=== PATIENT | female | born 1935 | race Caucasian/White ===

== ENCOUNTER 2018-09-12 19:11 | Inpatient (IN) ==
--- NOTE | 2018-09-12 19:43 | Diag Imaging Result Doc PS360 ---
EXAM: CT HEAD/C-SPINE W/O CONTRAST 09/12/2018 HISTORY: fall TECHNIQUE: This exam was performed using automated exposure control, adjustment of mA or kV according to patient size, and/or use of iterative reconstruction technique. COMMENT: There is no evidence of mass effect, bleed, abnormal extra-axial fluid collection, or hydrocephalus. There is a lacune in the right anterior temporal lobe. This has not changed since 12/23/2016. The paranasal sinuses are clear. There is no evidence of acute bony disease. Cervical spine: There is disc space narrowing and posterior osteophyte formation at the C4-5 and C5-6 levels. There is no evidence of prevertebral soft tissue swelling fracture or subluxation. There is bilateral foraminal stenosis at the C4-5 level and right-sided foraminal stenosis at C5-6. There is facet arthropathy bilaterally at C7-T1. IMPRESSION: No evidence of acute disease. Electronically signed by Sai Escalona 09/12/2018 7:41 PM
--- NOTE | 2018-09-12 19:47 | Diag Imaging Result Doc PS360 ---
EXAM: FEMUR 1 VIEW LEFT 09/12/2018 HISTORY: fall TECHNIQUE: Left femur two views COMMENT: There is a fracture of the femoral head. The remainder of the femur appears to be intact. IMPRESSION: Fracture femoral neck. Electronically signed by Sai Escalona 09/12/2018 7:44 PM
--- NOTE | 2018-09-12 20:03 | PROVIDER DOCUMENTATION ---
HPI-General Adult - General Chief Complaint: Hip Injury Stated Complaint: FALL Time Seen by Provider: 09/12/18 19:51 Source: patient Home Medications: Home Medication List Medication Instructions Recorded Confirmed Last Taken Type Levothyroxine [Synthroid] 50 mcg PO EVERY OTHER DAY 09/12/18 09/12/18 09/12/18 07:00 History Levothyroxine [Synthroid] 75 microgm PO EVERY OTHER DAY 09/12/18 09/12/18 09/11/18 07:00 History - History of Present Illness -Gen Adult Nature of Presenting Problems: Pt. is 83 yof that presents with c/o Left hip pain and left side head pain after she tripped and fell at home [employer]. Pt. reports no LOC. Location of Pain/Injury: reports: head, pelvis (Left). denies: none, face, mouth, neck, chest, upper extremity, hand(s), abdomen, back, genitalia, lower extremity, feet, upper body, lower body, generalized, other Pain Radiation: reports: no radiation. denies: arm(s), back, buttocks, chest, epigastric, feet, groin, jaw, flank (L), legs (lower), LLQ, LUQ, neck, periumbilical, flank (R), RLQ, RUQ, shoulder(s), scapula, scrotal, sternal notch, suprapubic, legs (upper), urethral, vaginal, other Quality of Pain: reports: aching. denies: burning, cramping, sharp, tightness Severity: reports: moderate. denies: mild, severe Onset/Duration: reports: abrupt, just prior to arrival Timing: reports: still present. denies: improving, gone now, constant, getting worse Context/Activities at Onset: reports: light activity, recent trauma history. denies: none, moderate activity, vigorous activity, recent emotional stress, recent physical stress, possible bad food, cold exposure, eating, out of country travel, rest, sleep, sexual activity, other Modifying Factors: improves with: immobilization. worse with: movement Associated Symptoms: reports: headaches, joint pain (Left hip). denies: denies symptoms, anxiety, arm pain, back/neck pain, chest pain, constipation, cough, diaphoresis, diarrhea, dizziness, EENT symptoms, fatigue, fever/chills, genitourinary problems, heartburn, loss of appetite, malaise, muscle aches, sinus congestion/drainage, nausea, rash, seizure, shortness of breath, sensory/motor loss, pain with inspiration, swelling/mass in abdomen, syncope, vomiting, weakness, trouble walking, other Similar Symptoms Previously?: No Recently seen or treated by another doctor?: No Review of Systems - Adult - REVIEW OF SYSTEMS - ADULT Constitutional: reports: no symptoms reported Eyes: reports: no symptoms reported Ears, Nose, Mouth & Throat: reports: no symptoms reported Cardiovascular: reports: no symptoms reported Respiratory: reports: no symptoms reported Gastrointestinal: reports: no symptoms reported Genitourinary: reports: no symptoms reported Musculoskeletal: reports: see HPI, joint pain (Left hip). denies: back pain, muscle aches, neck pain Integumentary: reports: no symptoms reported Neurological: reports: see HPI, headache/migraines. denies: dizziness/vertigo, numbness, seizure, tremors Psychiatric: reports: no symptoms reported Past History - Adult - PAST MEDICAL HISTORY-ADULT Review of Records: reports: Old Records Reviewed, Nursing Assessment Review, Medications Reviewed, Social history reviewed & non-contributory. - IMMUNIZATION STATUS Childhood Immunizations: See Nurse Assessment Flu Vaccine: See Nurse Assessment - FAMILY HISTORY Family History: reviewed, not pertinent - SOCIAL HISTORY Smoking: non-smoker Physical Exam-General - PHYSICAL EXAM-ADULT Initial Vital Signs Reviewed: Yes - CONSTITUTIONAL General Appearance: alert, moderate distress, thin. negative: anxious, slow to respond, obtunded, combative - EYES Eyes: PERRL/EOMI, pink conjunctivae. negative: conjuctival exudate, scleral icterus, subconjunctival hemorrhage - HEAD, EARS, NOSE, MOUTH & THROAT HENMT: moist mucous membranes, other (ecchymosis noted to left eye and dried blood around the left nare.). negative: normocephalic/atraumatic, angioedema, dental decay, hearing deficit - NECK Neck: non-tender, full range of motion, supple, normal inspection. negative: lymphadenopathy, trachial deviation, thyromegaly - RESPIRATORY Respiratory: lungs clear, normal breath sounds. negative: crackles, rales, rhonchi, stridor, wheezing - CARDIOVASCULAR Cardiovascular: normal peripheral pulses, regular rate, rhythm, no edema, no JVD . negative: extra beats, friction rub, irregularly irregular - GASTROINTESTINAL (ABDOMEN) Abdominal Exam: normal bowel sounds, non tender, soft. negative: distended, guarding, rigid, rebound, tenderness, hernia, mass - LYMPHATIC Lymphatic: no adenopathy. negative: axilla node tender, cervical node tenderness - MUSCULOSKELETAL Back Exam: normal inspection, no CVA tenderness, no vertebral tenderness. negative: ecchymosis, swelling, vertebral tenderness Extremity: deformity (Left hip), tenderness (Left hip). negative: normal range of motion, non-tender, normal gait, normal inspection, erythema, inflammation, swelling Peripheral Pulses: radial (R): 2+, radial (L): 2+ - SKIN Integumentary: normal color, normal turgor, warm/dry, ecchymosis (Left eye). negative: cyanosis, jaundice, pallor, rash, swelling, tenderness - NEUROLOGIC Neurologic: grossly normal, no motor/sensory deficits. negative: aphasia, facial droop, focal weakness, motor weakness, sensory deficit - PSYCHIATRIC Psych/Mental Status: normal mood/affect, normal thought content, normal thought process, oriented x 3. negative: anxious, paranoid, tearful Progress - PLAN OF CARE/RESULTS Progress/Plan/Lab Results: Orders Category Date Time Status CT HEAD/C-SPINE W/O CONTRAST [CT] Stat Exams 09/12/18 19:17 Completed FEMUR 1 VIEW LEFT [RAD] Stat Exams 09/12/18 19:12 Completed Result Diagrams: 09/12/18 19:41 09/12/18 19:41 - EKG 1 Time of EKG reading by physician:: 21:15 EKG Read and Signed by:: Ashu Roberto EKG Interpretation (*Must complete 3 of following elements*): Normal Rate: 67 Rhythm: NSR - XRAY 1 XRAY: Left XRAY Study: Femur ([facility] [address], [address], [place] [address] Department of Imaging Patient: RBITT TIMMONS ANNADM Date: 09/12/18MR#: [id number] : 1936ADM Status: PRE ERAcct#: [id number] Age/Sex: 83/FRoom/Bed: Loc: ED Ordering Physician: Ashu Roberto MD Family Physician: Bradley Boyd MD Reason for Procedure: fall ___ Signed EXAM: FEMUR 1 VIEW LEFT 09/12/2018 HISTORY: fall TECHNIQUE: Left femur two views COMMENT: There is a fracture of the femoral head. The remainder of the femur appears to be intact. IMPRESSION: Fracture femoral neck. Electronically signed by Sai Escalona 09/12/2018 7:44 PM 09/12/181943 Interpreting Physician: Sai Escalona MD Dictated Date/Time: 09/12/181943 cc: Ashu Roberto MD; Bradley Boyd MD) XRAY Interpretation: See note 2 XRAY Study: Chest ([facility] [address] [place] [address], [address], [place] [address] Department of Imaging Patient: BRITT TIMMONS ANNADM Date: 09/12/18MR#: [id number] : 1935DM Status: PRE ERAcct#: [id number] Age/Sex: 83/FRoom/Bed: Loc: ED Ordering Physician: Nasir Huerta Family Physician: Bradley Boyd MD Reason for Procedure: Admit ___ Signed EXAM: CHEST-1 VIEW 09/12/2018 HISTORY: Admit TECHNIQUE: AP portable upright at 2011 COMMENT: There may be COPD. There is no evidence of acute cardiac or pulmonary disease and compared to 09/25/2017 there has been no significant change. IMPRESSION: Stable chest. Electronically signed by Sai Escalona 09/12/2018 8:54 PM 09/12/182053 Interpreting Physician: Sai Escalona MD Dictated Date/Time: 09/12/182052 cc: Nasir Huerta; Bradley Boyd MD) XRAY Interpretation: See note - CT/MRI 1 CT Study: Cervical Spine ([facility] [address], [address], [place] [address] Department of Imaging Patient: BRITT TIMMONS ANNADM Date: 09/12/18MR#: [id number] : 8ADM Status: PRE ERAcct#: [id number] Age/Sex: 83/FRoom/Bed: Loc: ED Ordering Physician: Ashu Roberto MD Family Physician: Bradley Boyd MD Reason for Procedure: fall Signed EXAM: CT HEAD/C-SPINE W/O CONTRAST 09/12/2018 HISTORY: fall TECHNIQUE: This exam was performed using automated exposure control, adjustment of mA or kV according to patient size, and/or use of iterative reconstruction technique. COMMENT: There is no evidence of mass effect, bleed, abnormal extra-axial fluid collection, or hydrocephalus. There is a lacune in the right anterior temporal lobe. This has not changed since 12/23/2016. The paranasal sinuses are clear. There is no evidence of acute bony disease. Cervical spine: There is disc space narrowing and posterior osteophyte formation at the C4-5 and C5-6 levels. There is no evidence of prevertebral soft tissue swelling fracture or subluxation. There is bilateral foraminal stenosis at the C4-5 level and right-sided foraminal stenosis at C5-6. There is facet arthropathy bilaterally at C7-T1. IMPRESSION: No evidence of acute disease. Elec tronically signed by Sai Escalona 09/12/2018 7:41 PM 09/12/181940 Interpreting Physician: Sai Escalona MD Dictated Date/Time: 09/12/181937 cc: Ashu Roberto MD; Bradley Boyd MD), Head CT Results: See note - CONSULTS/PCP/HOSPITALIST Notification #1 *Consult/PCP/Hospitalist*: Dr. Lyles Time Discussed: 20:07 Reason/Comments: Consult Consult Disposition: other (Admit to hospitilist and consult) #2 Consult: Dr. Villalpando Time Discussed: 21:20 Reason/Comments: Admission Consult Disposition: Will see in ED, Admit Departure - Departure Date of Disposition Decision: 09/12/18 Time of Disposition Decision: 19:57 DIAGNOSIS: Hip fracture Qualifiers: Encounter type: initial encounter Fracture type: closed Laterality: left Qualified Code(s): S72.002A - Fracture of unspecified part of neck of left femur, initial encounter for closed fracture Hypothyroid Qualifiers: Hypothyroidism type: unspecified Qualified Code(s): E03.9 - Hypothyroidism, unspecified Disposition: ADMITTED INPATIENT 09 Certified Medical Emergency: Emergent Condition: Stable Referrals and Follow-Ups: Bradley Boyd MD [Primary Care Provider] - - Critical Care Note This patient required my direct & personal management of CC.: No Attestation - Physician/ LICO Attestation Patient care was provided by Advanced Practice Provider:: Yes Advanced Practice Provider:: Nasir Huerta Advanced Practice Provider documentation review:: The Mid-level provider documentation, treatment plan and medical decision making was reviewed by the physician who agrees with all treatment and medical decision making by the P. The physician spent face to face time with patient:: No Advanced Practice Provider documentation review:: Supervising physician onsite and consulted in the evaluation and care of this patient. The physician did not have a face to face encounter with the patient.
[2018-09-12 20:27] LABS: BASO# 0.01 X1000 (0.0-0.2); BASO% 0.1 % (0.0-0.8); EOS# 0.02 X1000 (0.0-0.7); EOS% 0.3 % (0.0-10.0); HEMATOCRIT 40.9 % (37.0-47.0); HEMOGLOBIN 13.6 g/dL (12.0-16.0); IMM GRAN# 0.08 X1000 (0.0-0.04); IMM GRAN% 1.1 % (0.0-0.5); LYMPH# 1.25 X1000 (1.2-3.4); LYMPH% 16.7 % (20.5-51.1); MCH 31.5 PG (27-31); MCHC 33.3 g/dL (33-37); MCV 94.7 FL (81-99); MONO# 0.46 X1000 (0.11-0.59); MONO% 6.1 % (1.7-9.3); MPV 11.9 FL (7.4-10.4); NEUT# 5.66 X1000 (1.4-6.5); NEUT% 75.7 % (42.2-75.2); PLT 153 X1000 (130-400); RBC 4.32 XMIL (4.2-5.4); WBC 7.48 X1000 (4.8-10.8)
[2018-09-12 20:37] LABS: ALB/GLOB RATIO 1.7; ALBUMIN 4.1 g/dL (3.5-5.0); CALCIUM 9.2 mg/dL (8.8-10.2); CREATININE 1.1 mg/dL (0.5-0.9); POTASSIUM 3.9 mmol/L (3.5-5.1); TOTAL BILIRUBIN 0.62 mg/dL (0.20-1.00); TOTAL PROTEIN 6.5 g/dL (6.3-8.3)
[2018-09-12 20:49] LABS: URINE SOURCE CATH
[2018-09-12 20:52] LABS: BILIRUBIN URINE NEGATIVE (NEGATIVE); BLOOD URINE NEGATIVE (NEGATIVE); COLOR YELLOW; GLUCOSE URINE NEGATIVE (NEGATIVE); KETONE URINE 10 mg/dL (NEGATIVE); LEUKOCYTES URINE NEGATIVE (NEGATIVE); NITRITE URINE NEGATIVE (NEGATIVE); PH URINE 5.5; PROTEIN URINE NEGATIVE (NEGATIVE); SP GRAVITY URINE 1.018; TURBIDITY URINE CLEAR (CLEAR); UROBILINOGEN URINE NORMAL (NORMAL)
[2018-09-12 20:54] LABS: UR EPITHELIAL CELLS <10 /HPF (<10); URINE BACTERIA NEGATIVE /HPF; URINE RBC <10 /HPF (<10); URINE WBC <10 /HPF (<10)
--- NOTE | 2018-09-12 20:56 | Diag Imaging Result Doc PS360 ---
EXAM: CHEST-1 VIEW 09/12/2018 HISTORY: Admit TECHNIQUE: AP portable upright at 2012 COMMENT: There may be COPD. There is no evidence of acute cardiac or pulmonary disease and compared to 09/25/2017 there has been no significant change. IMPRESSION: Stable chest. Electronically signed by Sai Escalona 09/12/2018 8:54 PM
[2018-09-12] MEDS ORDERED: ZOFRAN IV ONE (23:00)
[2018-09-12] MEDS ORDERED: MORPHINE IV ONE (23:00)
[2018-09-12 23:27] LABS: ALLEN TEST YES; BE 0.3 mmoll (-3.0-3.0); BLOOD TYPE ARTERIAL; HCO3-(ACT) 25.2 mmoll (20.0-26.0); O2(CT) 17.6 mL/dL (15.0-23.0); PCO2(98.6) 48 mmHg (35-45); PO2(98.6) 108 mmHg (60-100); SAMPLE BLOOD; THB 12.8 g/dL (11.5-17.4); pH(98.6) 7.35 (7.35-7.45)
[2018-09-12 23:28] LABS: MODALITY CANNULA
[2018-09-13] MEDS ORDERED: OFIRMEV 1000 MG/ISOTONIC SOLN 1,000 MG/100 ML BOTTLE IV ONE (01:21)
[2018-09-13] MEDS ORDERED: PROTONIX IV SCH (01:30)
[2018-09-13] MEDS ORDERED: MORPHINE IV PRN (03:00)
[2018-09-13] MEDS ORDERED: ZOFRAN IV PRN ×2 (03:00→16:05)
[2018-09-13] MEDS: NS 1,000 ML IV SCH ×2 (03:59→20:51)
[2018-09-13] MEDS: PROTONIX IV SCH (04:00)
[2018-09-13] MEDS: SODIUM CHLORIDE 0.9% INJ SCH (04:00)
--- NOTE | 2018-09-13 06:11 | HISTORY AND PHYSICAL ---
PRIMARY CARE PROVIDER: Dr. Boyd. DATE AND TIME OF HISTORY AND PHYSICAL: September 12, 2018 at 2230. CHIEF COMPLAINT: Left hip pain and fall from standing position. HISTORY OF PRESENT ILLNESS: Ms. Greenwood is an 83-year-old female who presented to the ER with complaints of left hip pain after a fall from a standing position. The patient states that she was in the kitchen. She had bent over and stood back up and went to take a step and she is not sure if she became dizzy and fell or if she lost her balance and fell. She fell, did hit her left side of her face and did land on her left hip. The patient does have a small area of bruising noted to her left eye and does have left hip pain for which she does have shortening of this extremity as well. There was no known loss of consciousness. The patient is alert and oriented to person, place, time and situation. Upon evaluation in the ER, the patient did have a CT head and C-spine without contrast which did not show any acute abnormalities. X-ray of the left femur did show a left femoral neck fracture. Chest x-ray showed no acute abnormalities. Dr. Lyles with Orthopedic Surgery was notified by the ER provider. The patient will be placed inpatient admission for further treatment and evaluation. The patient also did report that in the past week or so that she has had a carbon monoxide leak at her house and has been having occasional dizziness. We were unsure whether or not the dizziness that she reported that she had prior to her fall could have been related to this. We did do an arterial blood gas and her carboxyhemoglobin level was 2. Her PCO2 was slightly elevated at 48. PO2 was 108. Other than that her arterial blood gases was within normal limits. She denies any headache, chest pain, shortness of breath, abdominal pain, nausea, vomiting or diarrhea. Other than the pain reported in her left hip, she denies any other pain, numbness, tingling or swelling in extremities. REVIEW OF SYSTEMS: A 14-point review of systems was conducted with the patient and all were negative except for pertinent positives mentioned above in the HPI. PAST MEDICAL HISTORY: 1. Hypothyroidism. 2. History of right breast cancer status post lumpectomy and chemotherapy and radiation. PAST SURGICAL HISTORY: 1. Colon surgery secondary to from what it sounds like the patient described was a volvulus. 2. Left breast lumpectomy. SOCIAL HISTORY: The patient does live alone. She does require assistance with ambulation at times with a cane. She has no known tobacco, alcohol or illicit drug use history. FAMILY HISTORY: Positive for her mother having hypertension and arthritis. Her father had a history of malignant melanoma. ALLERGIES: The patient has allergies to codeine and Compazine. HOME MEDICATIONS: Levothyroxine though at this time we are verifying her dosage of this. DIAGNOSTIC DATA: Laboratory results: White blood cell count is 7480. Hemoglobin 13.6. Hematocrit 40.9. Platelet count is 153. Sodium 142. Potassium 3.9. Chloride 106. Serum bicarbonate is 26. BUN 21. Creatinine 1.1 with a GFR of 48. Glucose 133. Calcium 9.2. Liver function test within normal limits. Her AST was slightly elevated at 32. TSH is 5.57. Arterial blood gases were obtained on nasal cannula at 2 L, pH 7.35, PCO2 48, PO2 108, HC03 is 25.2 with a base excess of 0.3,O2 saturation was 100 and carboxyhemoglobin was 2. Urinalysis was obtained via catheter. It was positive for some ketones but other than this was negative for protein, glucose, blood, nitrites, leukocytes, white blood cells or bacteria. EKG showed normal sinus rhythm and a rate of 67 with a QTc of 450. Chest x-ray showed no acute abnormalities as per Radiology. CT head and C-spine without contrast showed no acute disease. This is per Radiology as well. Left femur x-ray showed a left femoral neck fracture. PHYSICAL EXAMINATION: VITAL SIGNS: Temperature 98.3, heart rate 84, respirations 19, blood pressure 133/58, oxygen saturation is 100% per nasal cannula at 2 L. GENERAL: Ms. Greenwood is a pleasant 83-year-old, female. She was resting in the ER stretcher. She was in no acute distress. She was awake, alert and able to answer questions appropriately. HEENT: Head is atraumatic, normocephalic. Pupils are equal, round, reactive to light, were 3 mm bilaterally and brisk. Oral mucosa was moist. Oropharynx was clear. NECK: Supple. Trachea midline. CARDIOVASCULAR: Patient has normal S1, S2. No murmurs, gallops or rubs appreciated, with a regular rate and rhythm. PULMONARY: Patient has symmetrical chest expansion bilaterally. Lung sounds are clear to auscultation in bilateral full johnson. ABDOMEN: Soft, nontender, nondistended. Bowel sounds are present in all 4 quadrants, were normoactive. GENITOURINARY: Patient does have a Hayes catheter in place at this time that does have clear yellow urine noted to Hayes drainage back. EXTREMITIES: No cyanosis, clubbing or edema noted. Pulse, motor and sensory were intact in all extremities. Radial pulses were 2+ bilaterally. Pedal pulses were 2+ bilaterally. The patient did have some shortening of her left lower extremity. INTEGUMENTARY: The patient's skin is pink, warm and dry. She does have an area of ecchymosis noted to the lateral corner of her left eye. NEUROLOGICAL: The patient is alert and oriented to person, time and situation. She does not appear to have any focal neurological deficits noted. ASSESSMENT AND PLAN: 1. Left femoral neck fracture. For this we have placed the patient on strict bedrest. She will be NPO after midnight. Will provide some gentle IV fluid hydration. Dr. Lyles with Orthopedic Surgery has been notified. He will see the patient in the morning. We will await their evaluation and further recommendations for management. 2. Fall from a standing position. The patient states that she was unsure if she got dizzy and fell or if she lost her balance and fell. The patient had been reporting some occasional episodes of dizziness over the past few weeks. She has reported recent carbon monoxide leak at her house. We did drawn an ABG to evaluate her carboxyhemoglobin level which was not elevated. We will continue to follow. 3. Hypothyroidism. Will continue her levothyroxine. We are awaiting further dosage to be verified at this time. 4. DVT prophylaxis. We have placed SCDs on her right lower extremity only at this time. We will defer further VTE prophylaxis to orthopedic surgical team. The patient has been placed on the surgical floor with telemetry. She will have vital signs q.4.h. Will do strict intake and output, incentive spirometry. Will repeat a CBC, BMP and PT and PTT in the morning. Further orders and recommendations pending hospital course, diagnostic studies and physician evaluation. Dictated by YE Perez for Gabe Celestin MD cc: MD Bradley Lagunas MD
[2018-09-13 06:47] LABS: BASO# 0.01 X1000 (0.0-0.2); BASO% 0.1 % (0.0-0.8); EOS# 0.01 X1000 (0.0-0.7); EOS% 0.1 % (0.0-10.0); HEMATOCRIT 40.3 % (37.0-47.0); HEMOGLOBIN 13.2 g/dL (12.0-16.0); IMM GRAN# 0.02 X1000 (0.0-0.04); IMM GRAN% 0.3 % (0.0-0.5); LYMPH% 6.7 % (20.5-51.1); MCH 31.2 PG (27-31); MCHC 32.8 g/dL (33-37); MCV 95.3 FL (81-99); MONO# 0.47 X1000 (0.11-0.59); MONO% 6.3 % (1.7-9.3); MPV 11.7 FL (7.4-10.4); NEUT# 6.47 X1000 (1.4-6.5); NEUT% 86.5 % (42.2-75.2); PLT 104 X1000 (130-400); RBC 4.23 XMIL (4.2-5.4); RDW 13.1 % (11.5-14.5); WBC 7.48 X1000 (4.8-10.8)
[2018-09-13 06:52] LABS: PTT 30.9 Seconds (22.3-41.8)
[2018-09-13 06:53] LABS: CALCIUM 8.9 mg/dL (8.8-10.2); POTASSIUM 4.9 mmol/L (3.5-5.1)
--- NOTE | 2018-09-13 08:32 | CONSULTATION ---
DATE OF CONSULTATION: 09/13/2018 CLINICAL HISTORY: The patient is an 83-year-old female who is 1 day status post fall from a standing position while in her kitchen. She fell to the ground and felt immediate pain and discomfort in her left hip. She presented to the emergency room. X-rays revealed a left displaced femoral neck fracture. She was admitted to the hospital and orthopedic consultation was requested. She denies loss of consciousness. HOME MEDICATIONS: Levothyroxine. ALLERGIES: Codeine, prochlorperazine. PAST MEDICAL HISTORY: Hypothyroidism, history of breast cancer, status post lumpectomy, chemotherapy, and radiation. PAST SURGICAL HISTORY: 1. Colon surgery. 2. Left breast lumpectomy. PHYSICAL EXAMINATION: Patient is awake, alert, and cooperative with the exam. She has ecchymosis along the left periorbital region. She is nontender along the cervical spine. Bilateral upper extremities are nontender to palpation. No palpable deformity and good range of motion. Her right lower extremity is nontender to palpation throughout the lower extremity. Compartments are soft. She has active dorsiflexion and plantar flexion. The left lower extremity has diffuse tenderness to palpation about the left hip, tenderness with gentle movement. It is shortened and externally rotated. She is grossly neurovascularly intact distally and has active dorsiflexion and plantar flexion. DIAGNOSTIC DATA: X-rays revealed a left displaced femoral neck fracture. IMPRESSION: Left displaced femoral neck fracture. PLAN: At this time, recommendation for a hemiarthroplasty of the left hip was offered. Risks and benefits of surgery were explained including the risks of anesthesia, , bleeding, infection, failure to relieve pain, postoperative stiffness, nerve injury, blood clots, and other imponderables. All questions were answered. Patient and family agree to treatment plan. I will plan on surgery later today. cc: MD Bradley Brock MD
[2018-09-13 08:33] LABS: BANDS 8 % (0-1); LYMPHS 20 % (21-51); MONO 2 % (1-9); SEGS 70 % (42-75)
--- NOTE | 2018-09-13 09:04 | EKG Report ---
Test Performed on : 09/12/2018 9:13:02 PM Test Reason : admit Blood Pressure : / mmHG Vent. Rate : 067 BPM Atrial Rate : 067 BPM P-R Int : 156 ms QRS Dur : 068 ms QT Int : 426 ms P-R-T Axes : 075 003 039 degrees QTc Int : 450 ms Normal sinus rhythm. Normal ECG No previous ECGs available Unconfirmed Result
[2018-09-13] MEDS: OFIRMEV 1000 MG/ISOTONIC SOLN 1,000 MG/100 ML BOTTLE IV SCH (09:14)
--- NOTE | 2018-09-13 09:16 | PROGRESS NOTE ---
DATE: 09/13/2018 SUBJECTIVE: Ms. Greenwood came [place] yesterday and fell trying to change her clothes. She hit on the left side of her face, did not land on her hip. In the ER, CT of the head and C-spine did not show any acute abnormalities. X-ray of the left femur showed left femoral neck fracture. Dr. Lyles has evaluated. PAST MEDICAL HISTORY: Fairly unremarkable. History of hypothyroidism, history of breast cancer, status post lumpectomy and chemotherapy and radiation in the past. She has had colon surgery in the past, I think for a volvulus, and left breast lumpectomy as mentioned above. PHYSICAL EXAM: General: Today she is awake and alert, comfortable, oriented x3. Vital Signs: Temp 98.4 degrees, pulse 64, respirations 14, blood pressure 118/52. HEENT: Pupils are equal and round. Lungs: Clear in all lung johnson. Cardiovascular: Regular rhythm and rate without murmur or S3. Abdomen: Soft. Skin: Warm and dry. LABORATORY DATA: Labs reviewed from yesterday. White count 7480, hematocrit was 40, platelet count 104,000. Sodium 140, potassium 4.9 chloride 105 BUN 17, creatinine 1.0. Pro time is 14, PTT was 30. Urinalysis unremarkable. Blood gases on arrival: pH was 7.35, pCO2 was 48, PO2 was 108. ASSESSMENT AND PLAN: Left femur fracture. The fracture of the femoral head, remainder the femur appears intact, for open reduction internal fixation today. Appreciate Dr. Lyles's help. She has a left displaced femoral neck fracture and they recommended hemiarthroplasty. We discussed going to rehab afterwards. Review of her orders at present, I do not see any change. Getting normal saline at 85 mL an hour. cc: Bradley Boyd MD
[2018-09-13] MEDS ORDERED: FENTANYL ONE (11:20)
[2018-09-13] MEDS ORDERED: NEOSPORIN G.U. IRRIGANT ONE (11:23)
[2018-09-13] MEDS ORDERED: KEFZOL 1 GM/D5W 1 GM/50 ML IVPB ONE (11:45)
[2018-09-13] MEDS ORDERED: PITRESSIN ONE (12:45)
[2018-09-13] MEDS ORDERED: XYLOCAINE-MPF 2% ONE (12:45)
[2018-09-13] MEDS ORDERED: ZOFRAN ONE (12:45)
[2018-09-13] MEDS ORDERED: EPHEDRINE ONE (12:54)
[2018-09-13] MEDS ORDERED: STERILE WATER INJ. ONE (12:54)
[2018-09-13] MEDS: MORPHINE ONE ×2 (13:46→13:52)
--- NOTE | 2018-09-13 13:51 | OPERATIVE NOTE ---
PROCEDURE DATE: 09/12/2018 PREOPERATIVE DIAGNOSIS: Left displaced femoral neck fracture. POSTOP: Left displaced femoral neck fracture. PROCEDURE: Hemiarthroplasty left hip with a DePuy Corail size 13 press-fit stem, a 28+ 5 femoral head and a 28 x 44 bipolar head. SURGEON: Ashu Lyles MD 1ST ASSIST: YE Reddy. 2ND PRODUCTION LINE WELDER: Levy Beltre RN. ANESTHESIA: General. IV FLUIDS: 1000 mL lactated Ringer's. ESTIMATED BLOOD LOSS: 200 mL. COMPLICATIONS: None. INDICATION: The patient is an 83-year-old female who is 1 day status post fall injuring her left hip. She presented the emergency room and x-rays revealed left displaced femoral neck fracture. She is admitted the hospital and orthopedic consultation was requested. Recommendation to proceed with hemiarthroplasty left hip was offered. Risks, benefits surgery explained including the risks of anesthesia, , bleeding, infection, failure relieve pain, postoperative stiffness, nerve injury, blood clots and other imponderables. All questions were answered. The patient's family wished to proceed with surgery. DETAILS OF OPERATION: The patient was taken to the operating room, underwent general anesthesia. After adequate anesthesia was obtained she is placed in a right lateral decubitus position on godoy bag axillary roll. Left hip subsequently prepped and draped in usual sterile fashion. Standard lateral incision made with a skin knife. Hemostasis was obtained using electrocautery. The incision was carried down through the gluteus sekou and fascia anh in line with the incision. A Charnley retractor was placed. The piriformis tendon was then identified and stay sutures placed. Piriformis tendon along with short external rotators was released. A T-shaped capsulotomy was then performed, stay sutures placed in each corner the posterior capsule. The provisional neck cut was performed approximately 1 cm proximal lesser trochanter. This was then removed. The corkscrew was then used to remove the femoral head. The bone debris was removed. A starting reamer was then passed intramedullary nail followed by sequential broaching up to a size 13 and calcar planer was then placed. After that performed the trial head and neck length size was determined to be 28+ femoral head with a 28 x 45 bipolar head had excellent stability range of motion. The trial implant was removed . Wound was copiously irrigated with antibiotic pulsatile lavage. A size 13 press-fit DePuy Corail stem was impacted had good fit. A 28+ 5 femoral head with a 28 x 45 bipolar head was then placed. The hip was reduced, carried through range of motion excellent range of motion. The wound was copiously irrigated. The capsulotomy was repaired with #1 Vicryl. The piriformis tendon was repaired with #1 Vicryl as well. Irrigation was then performed once again with antibiotic pulsatile lavage and the Charnley retractor was removed. Number 1 Vicryl was used repair the gluteus sekou in a running fashion. Irrigation was performed once again this followed by 2-0 Vicryl repair subcutaneous tissue and skin chantel. Adaptic, 4 x 4s, ABD pad and tape applied left hip. Patient tolerated procedure well no complications, transferred to the recovery room in stable condition. cc: MD Bradley Brock MD
[2018-09-13] MEDS ORDERED: MORPHINE ONE (14:06)
--- NOTE | 2018-09-13 14:23 | Diag Imaging Result Doc PS360 ---
EXAM: HIP 1 VIEW LEFT INDICATION: Left bipolar arthroplasty TECHNIQUE: One view COMPARISON: 09/12/2018 FINDINGS: There has been a recent left hip arthroplasty. The arthroplasty hardware is in the expected position. There is no evidence of periprosthetic fracture. There are skin chantel overlying the left hip. IMPRESSION: Satisfactory postoperative left hip. Electronically signed by Ki Antonio 09/13/2018 2:21 PM
[2018-09-13] MEDS ORDERED: MILK OF MAGNESIA PO PRN (16:05)
[2018-09-13] MEDS ORDERED: HALDOL IV PRN (16:15)
[2018-09-13] MEDS: MORPHINE IV PRN ×2 (16:55→20:57)
[2018-09-13] MEDS: COLACE PO SCH (20:42)
[2018-09-13] MEDS: PERIDEX MT SCH (20:42)
[2018-09-13] MEDS: KEFZOL 1 GM/D5W 1 GM/50 ML IVPB IV SCH (20:43)
[2018-09-14] MEDS: OFIRMEV 1000 MG/ISOTONIC SOLN 1,000 MG/100 ML BOTTLE IV SCH (00:16)
[2018-09-14] MEDS: PROTONIX IV SCH (01:02)
[2018-09-14] MEDS: TYLENOL PO SCH ×4 (01:02→17:04)
[2018-09-14] MEDS: SODIUM CHLORIDE 0.9% INJ SCH (01:02)
[2018-09-14] MEDS ORDERED: TYLENOL PO PRN (02:00)
[2018-09-14] MEDS: KEFZOL 1 GM/D5W 1 GM/50 ML IVPB IV SCH (05:31)
[2018-09-14] MEDS: XARELTO PO SCH (05:31)
[2018-09-14 06:13] LABS: HEMATOCRIT 34.2 % (37.0-47.0)
[2018-09-14 06:47] LABS: CALCIUM 7.7 mg/dL (8.8-10.2); POTASSIUM 4.5 mmol/L (3.5-5.1)
--- NOTE | 2018-09-14 07:17 | PROGRESS NOTE ---
DATE: 09/14/2018 SUBJECTIVE: The patient is a pleasant, 83-year-old female who is 1 day status post hemiarthroplasty of the left hip. She is currently resting comfortably. OBJECTIVE: On physical examination of the patient's left lower extremity, her dressing is intact. Calf is soft. She has active dorsiflexion and plantar flexion. She is neurovascularly intact distally. Her hemoglobin is 11.0 and hematocrit is 34.2. IMPRESSION: Postoperative day #1 status post hemiarthroplasty of the left hip. PLAN: At this point, we will begin mobilization with physical therapy with weightbearing as tolerated to the left lower extremity. client services manager have been consulted for discharge planning. We will change her dressing tomorrow. cc: MD Bradley Brock MD
[2018-09-14] MEDS ORDERED: CALMOSEPTINE OINTMENT TOP PRN ×2 (07:21→07:28)
[2018-09-14] MEDS: FERROUS SULFATE PO SCH (09:21)
[2018-09-14] MEDS: PERIDEX MT SCH ×2 (09:23→20:44)
[2018-09-14] MEDS: OXY IR PO PRN ×2 (11:05→20:44)
--- NOTE | 2018-09-14 16:54 | PROGRESS NOTE ---
DATE: 09/14/2018 SUBJECTIVE: Ms Greenwood is doing well. She has a good deal of pain in her hip, but otherwise no complaints. OBJECTIVE: Vital signs: She remains afebrile at 98.5 degrees, pulse 77, respirations 16, blood pressure 107/50. HEENT: Pupils are equal and round. Lungs: Clear in all lung johnson. Cardiovascular: Regular rhythm and rate without murmur or S3. Abdomen: Soft. Skin: Warm and dry. Vascular: Pedal pulses 2+ and symmetrical and left foot is warm with good capillary refill. Output: Urine output was a little over 2 L. ASSESSMENT AND PLAN: 1. Postoperative day #1 status post hemiarthroplasty, left hip, doing well. 2. Postoperative hematocrit 34, hemoglobin 11, so blood-loss anemia. We will follow. 3. Looking over her orders, she is on Colace 200 mg at bedtime, she is getting oxycodone IR 5 mg q.3 h. p.r.n. Tylenol 1000 mg q.8 h., ferrous sulfate 325 mg a day, Protonix 40 mg IV q.24 h., Xarelto 10 mg daily. I do not see any change. cc: Bradley Boyd MD
[2018-09-14] MEDS: COLACE PO SCH (20:44)
[2018-09-15] MEDS: TYLENOL PO SCH ×4 (01:06→21:59)
[2018-09-15 05:38] LABS: HEMATOCRIT 32.8 % (37.0-47.0); HEMOGLOBIN 10.6 g/dL (12.0-16.0)
[2018-09-15] MEDS: XARELTO PO SCH (06:27)
[2018-09-15] MEDS: PROTONIX PO SCH (06:27)
[2018-09-15] MEDS: PERIDEX MT SCH ×2 (10:21→21:59)
[2018-09-15] MEDS: FERROUS SULFATE PO SCH (10:22)
[2018-09-15] MEDS: OXY IR PO PRN (10:26)
[2018-09-15] MEDS ORDERED: MILK OF MAGNESIA PO PRN (15:38)
--- NOTE | 2018-09-15 15:52 | PROGRESS NOTE ---
DATE: 09/15/2018 SUBJECTIVE: Ms. Greenwood is doing well sitting in a chair. The left eye looks less swollen. Ecchymosis is going down. Her pain is better controlled, although the Percocet was making her nauseated. I will try her on some Dinosaur. She did want to have a laxative. She needs one. OBJECTIVE: Vital Signs: Temperature 98.6 degrees, pulse 89, respirations 16, blood pressure 96/48. Eyes: Pupils are equal. Lungs: Lungs are clear in all lung johnson. Cardiovascular exam: Regular rhythm and rate without murmur or S3. Abdomen: Soft. Extremities: No pedal edema. Pedal pulses are symmetrical, warm, good capillary refill. : Urine output is 3400 mL. ASSESSMENT AND PLAN: 1. Postoperative day 2, status post hemiarthroplasty. Doing well. 2. Postoperative hematocrit is 32 and hemoglobin is 10, stable. She has a mild acute blood loss anemia. She is on iron. 3. Probably be ready to go to rehabilitation; they were looking at [facility]. She is eating well. We will give her a laxative. We will change her pain medicine to Dinosaur, and see if she tolerates that better. cc: Bradley Boyd MD
--- NOTE | 2018-09-15 17:50 | PROGRESS NOTE ---
DATE: 09/15/2018 SUBJECTIVE: Patient is an 83-year-old female who is 2 days status post hemiarthroplasty of the left hip. She is currently resting comfortably. OBJECTIVE: Her dressing is intact. Calf is soft. She has active dorsiflex dorsiflexion and plantar flexion. LABORATORY: Her hemoglobin is 10.6, hematocrit is 32.8. IMPRESSION: Postoperative day #2 status post hemiarthroplasty left hip. PLAN: At this point, the patient will continue progressing with physical therapy. Will weight bear as tolerated on the left lower extremity. She is having some problems with the Percocet and has been switched to Tracy. Data Analytics Developer has been consulted for discharge planning. cc: MD Bradley Brock MD
[2018-09-15] MEDS: COLACE PO SCH (21:59)
[2018-09-16] MEDS: TYLENOL PO SCH ×2 (05:34→14:33)
[2018-09-16] MEDS: XARELTO PO SCH (05:35)
[2018-09-16] MEDS: PROTONIX PO SCH ×2 (05:35→06:45)
--- NOTE | 2018-09-16 06:26 | PROGRESS NOTE ---
DATE: 09/16/2018 SUBJECTIVE: The patient is a pleasant 83-year-old female who is 3 days status post hemiarthroplasty left hip. She is currently resting comfortably this morning. PHYSICAL EXAMINATION: Her left hip dressing is intact. Calf is soft. She has active dorsiflexion and plantar flexion. IMPRESSION: Postoperative day #3 status post hemiarthroplasty of the left hip. PLAN: At this point, the patient is stable from an orthopedic standpoint with regards to discharge and will be discharged to inpatient rehabilitation once a bed is available and per Dr. Boyd. cc: MD Bradley Brock MD
[2018-09-16 06:48] LABS: HEMATOCRIT 32.3 % (37.0-47.0); HEMOGLOBIN 10.9 g/dL (12.0-16.0)
[2018-09-16] MEDS: NORCO-5 PO PRN ×2 (07:18→15:04)
[2018-09-16] MEDS: PERIDEX MT SCH (08:10)
[2018-09-16] MEDS: FERROUS SULFATE PO SCH (08:10)
[2018-09-16 11:18] VITALS: BP 108/52
--- NOTE | 2018-09-16 14:13 | DISCHARGE SUMMARY ---
ADMISSION DATE: 09/12/2018 DISCHARGE DATE: 09/16/2018 HISTORY: She is a patient of mine for many years, came in with left hip pain after she had a fall from standing position. Denied any loss of consciousness or focal neurologic problems or incontinence of bowel or bladder. This 83-year-old presented to the emergency room with complaints of left hip pain after falling from standing position. States she was in the kitchen, she bent over and stood back up, tried to take a step and she became a little bit dizzy and off-balance, so fell and landed on her left hip. She also struck her left eye, had a periorbital ecchymosis and swelling. In the emergency room, CT of the head and spine were unremarkable. No abnormalities. X-ray of the left femur showed left femur neck fracture so she was admitted to the hospital. PAST MEDICAL HISTORY: 1. Hypothyroidism. 2. History of right breast cancer status post lumpectomy and chemotherapy and radiation. PAST SURGICAL HISTORY: 1. Colon resection, sounds like the patient had a volvulus. 2. Left breast lumpectomy in the past. HOSPITAL COURSE: Admitted with left femoral neck fracture. Dr. Lyles evaluated and surgery was done on 09/13/2018, hemiarthroplasty. She tolerated the procedure well and blood pressure looked good. Postoperative hematocrit remained stable at 32, hemoglobin 10.9. Preoperatively, she had a hematocrit of 40, so she did have a little bit of acute blood loss anemia, but she is on iron and felt we would keep her on iron for another month or so. She seemed to be eating pretty well. MEDICATIONS: 1. She is on Colace 200 mg at bedtime. 2. Ferrous sulfate 325 mg at breakfast. 3. We will give her some Woodworth 5 mg q.4 hours p.r.n., which she seems to tolerate little better. She had a little nausea with Percocet. 4. Milk of magnesia 30 mL daily. 5. Protonix we are giving 40 mg p.o. daily. We will continue that for another 4 weeks. 6. Xarelto 10 mg a day. 7. I will put her back on her Synthroid and instead of 50 alternating with 75, we will give her 75 mcg daily. cc: Bradley Boyd MD
== END 2018-09-16 15:19 | disposition home health service (06) | DRG 470 ==
LOC: SUPCPDRO → ED 19:11 → SUATTDRO 23:07 → 4N 23:07
PROVIDERS: ADMIT Emergency Medicine; ATTEND Emergency Medicine
CPT/HCPCS: 51702; 70450; 71010; 71045; 72125; 73500; 73501; 73551; 80048; 80053; 81001; 82550; 82805; 84134; 84443; 85014; 85018; 85025; 85610; 85730; 86850; 86900; 86901; 88305; 88311; 93005; 94761; 94799; 96374; 96375; 97110; 97162; 97530; 99285; A9270; C9113; J0131; J0690; J2270; J2405; J3010; J7030; S0164

== ENCOUNTER 2018-09-20 18:36 | Inpatient (IN) ==
[2018-09-20 20:08] LABS: BASO# 0.02 X1000 (0.0-0.2); BASO% 0.3 % (0.0-0.8); EOS# 0.01 X1000 (0.0-0.7); EOS% 0.1 % (0.0-10.0); HEMOGLOBIN 11.6 g/dL (12.0-16.0); IMM GRAN# 0.06 X1000 (0.0-0.04); IMM GRAN% 0.8 % (0.0-0.5); LYMPH# 0.38 X1000 (1.2-3.4); LYMPH% 4.8 % (20.5-51.1); MCHC 33.1 g/dL (33-37); MCV 93.6 FL (81-99); MONO# 0.37 X1000 (0.11-0.59); MONO% 4.7 % (1.7-9.3); MPV 9.6 FL (7.4-10.4); NEUT# 7.09 X1000 (1.4-6.5); NEUT% 89.3 % (42.2-75.2); PLT 301 X1000 (130-400); RBC 3.74 XMIL (4.2-5.4); RDW 13.2 % (11.5-14.5); WBC 7.93 X1000 (4.8-10.8)
[2018-09-20 20:31] LABS: AGAP 10; ALB/GLOB RATIO 1.2; ALBUMIN 3.3 g/dL (3.5-5.0); ALKALINE PHOSPHATASE 84 U/L (32-104); AMYLASE 117 U/L (20-200); BUN 20 mg/dL (8-22); CALCIUM 9.4 mg/dL (8.8-10.2); CHLORIDE 97 mmol/L (98-107); COSMO 277; CREATININE 0.8 mg/dL (0.5-0.9); ESTIMATED GFR > 60; GLUCOSE 137 mg/dL (70-104); GOT 30 U/L (10-30); GPT 21 U/L (10-36); LIPASE 53 U/L (13-60); POTASSIUM 5.2 mmol/L (3.5-5.1); SODIUM 136 mmol/L (136-145); TCO2 29 mmol/L (25-35); TOTAL BILIRUBIN 1.02 mg/dL (0.20-1.00)
[2018-09-20 20:49] LABS: URINE SOURCE CATH
[2018-09-20 21:04] LABS: BILIRUBIN URINE NEGATIVE (NEGATIVE); BLOOD URINE NEGATIVE (NEGATIVE); COLOR YELLOW; GLUCOSE URINE NEGATIVE (NEGATIVE); KETONE URINE 20 mg/dL (NEGATIVE); LEUKOCYTES URINE NEGATIVE (NEGATIVE); NITRITE URINE NEGATIVE (NEGATIVE); PH URINE 7.5; PROTEIN URINE TRACE mg/dL (NEGATIVE); SP GRAVITY URINE 1.017; TURBIDITY URINE HAZY (CLEAR); UROBILINOGEN URINE 4 mg/dL (NORMAL)
[2018-09-20 21:06] LABS: UR EPITHELIAL CELLS <10 /HPF (<10); URINE BACTERIA 4+ /HPF; URINE RBC <10 /HPF (<10); URINE WBC <10 /HPF (<10)
[2018-09-20] MEDS ORDERED: NS 1,000 ML IV ONE (21:33)
[2018-09-20] MEDS ORDERED: ZOFRAN IV ONE (23:47)
[2018-09-20] MEDS ORDERED: ZOFRAN ONE (23:50)
--- NOTE | 2018-09-21 00:13 | PROVIDER DOCUMENTATION ---
This chart was entered by Selena Antonio Scribe, acting as scribe for Mari Mckeon MD. HPI-Abdominal Pain/GI Problem - General Chief Complaint: Nausea/Vomiting Stated Complaint: N/V/ABDOMINAL PAIN Time Seen by Provider: 09/20/18 19:11 Source: patient Allergies/Adverse Reactions: Patient Allergies Allergy/AdvReac Type Severity Reaction Status Date / Time codeine AdvReac DIZZINESS Verified 09/12/18 21:24 prochlorperazine AdvReac DIZZINESS Verified 09/12/18 21:24 [From Compazine] Home Medications: Home Medication List Medication Instructions Recorded Confirmed Last Taken Type Levothyroxine [Synthroid] 50 mcg PO EVERY OTHER DAY 09/12/18 09/13/18 09/11/18 07:00 History Levothyroxine [Synthroid] 75 microgm PO EVERY OTHER DAY 09/12/18 09/13/18 09/12/18 07:00 History Acetaminophen [Tylenol] 1,000 mg PO Q8H tab 09/16/18 Unknown Rx Chlorhexidine Gluconate [Peridex] 15 ml MT BID udc 09/16/18 Unknown Rx Docusate Sodium [Colace] 200 mg PO QHS cap 09/16/18 Unknown Rx Ferrous Sulfate 325 mg PO WBREAKFAST tab 09/16/18 Unknown Rx Hydrocodone/APAP 5 mg/325 mg 1 ea PO Q4H PRN PRN 10 Days #40 tab 09/16/18 Unknown Rx [Menlo-5] Magnesium Hydroxide [Milk of 30 ml PO DAILY PRN PRN udc 09/16/18 Unknown Rx Magnesia] Magnesium Hydroxide [Milk of 30 ml PO DAILY PRN PRN udc 09/16/18 Unknown Rx Magnesia] Pantoprazole [Protonix] 40 mg PO DAILY@0700 tab 09/16/18 Unknown Rx Rivaroxaban [Xarelto] 10 mg PO Q24H tab 09/16/18 Unknown Rx - History of Present Illness-ABD Nature of Presenting Problems: 83 yof presents to er w/co abdominal pain and nausea and vomiting. She states this feels as if she has a twisted colon which she states happened to her in 1997. pt states that pain started this afternoon. pt has generalized abd pain, chills, nausea and states she has vomited "50 times today and its all liquid." pt has not had a bm today but has been passing gas. pt had left hip sx a week ago at [facility] and stayed till 3-14, and started rehab. pt denies dysuria, fever, and sob. Abdominal Pain Onset Location: reports: generalized abdomen Pain Radiation: reports: no radiation Quality of Pain: reports: aching Severity in ED: reports: mild Onset/Duration: reports: this afternoon Timing: reports: still present Activities at Onset: reports: none Exposure to sick contacts?: No Review of Systems - Adult - REVIEW OF SYSTEMS - ADULT Constitutional: reports: see HPI, chills. denies: fever, fatique Eyes: reports: no symptoms reported Ears, Nose, Mouth & Throat: reports: no symptoms reported Cardiovascular: reports: no symptoms reported Respiratory: reports: no symptoms reported. denies: shortness of breath Gastrointestinal: reports: see HPI, abdominal pain, nausea, vomiting. denies: hematemesis, constipation, diarrhea, poor appetite Genitourinary: reports: no symptoms reported Musculoskeletal: reports: no symptoms reported Integumentary: reports: no symptoms reported Neurological: reports: no symptoms reported Psychiatric: reports: no symptoms reported Endocrine: reports: no symptoms reported Hematologic/Lymphatic: reports: no symptoms reported Allergic/Immunologic: reports: no symptoms reported All Other Systems: Reviewed and Negative Past History - Adult - PAST MEDICAL HISTORY-ADULT Review of Records: reports: Old Records Reviewed, Nursing Assessment Review, Medications Reviewed, Social history reviewed & non-contributory. Major Childhood Illnesses: reports: denies history Cardiovascular: reports: denies history Respiratory: reports: denies history Gastrointestinal: reports: denies history Obstetrical/Gynecological: reports: other (breast cancer) Genitourinary: reports: denies history Musculoskeletal: reports: denies history Neurological: reports: denies history Endocrine/Immune: reports: thyroid disorder (hypo) Other Conditions: reports: denies history - PRIOR SURGERIES/PROCEDURES Surgical/Procedure History: reports: joint replacement (left hip) - IMMUNIZATION STATUS Childhood Immunizations: See Nurse Assessment Flu Vaccine: See Nurse Assessment - FAMILY HISTORY Family History: reviewed, not pertinent Physical Exam-General - PHYSICAL EXAM-ADULT Initial Vital Signs Reviewed: Yes - CONSTITUTIONAL General Appearance: appears well, alert, mild distress (uncomfortable appearing) - EYES Eyes: PERRL/EOMI - HEAD, EARS, NOSE, MOUTH & THROAT HENMT: normocephalic/atraumatic - NECK Neck: supple, normal inspection - RESPIRATORY Respiratory: chest non-tender, lungs clear, normal breath sounds - CARDIOVASCULAR Cardiovascular: normal peripheral pulses, regular rate, rhythm - GASTROINTESTINAL (ABDOMEN) Abdominal Exam: normal bowel sounds, soft, tenderness (gen abd). negative: abnormal bowel sounds, guarding, rigid, rebound - LYMPHATIC Lymphatic: no adenopathy - MUSCULOSKELETAL Back Exam: normal inspection Extremity: normal range of motion, non-tender, normal inspection. negative: pelvis stable, inflammation, swelling Peripheral Pulses: radial (R): 2+, radial (L): 2+ - SKIN Integumentary: normal color, normal turgor, warm/dry - NEUROLOGIC Neurologic: grossly normal, no motor/sensory deficits - PSYCHIATRIC Psych/Mental Status: normal mood/affect, oriented x 3 Progress - PLAN OF CARE/RESULTS Progress/Plan/Lab Results: Orders Category Date Time Status CT ABD/PELVIS W/IV CONT ONLY [CT] Stat Exams 09/20/18 19:38 Ordered AMYLASE [CHEM] Stat Lab 09/20/18 19:38 Uncollected CBC WITH ELECTRONIC DIFF [HEME] Stat Lab 09/20/18 19:38 Uncollected COMPREHENSIVE METABOLIC PANEL [CHEM] Stat Lab 09/20/18 19:38 Uncollected LIPASE [CHEM] Stat Lab 09/20/18 19:38 Uncollected URINALYSIS W/POSS RFLX CULT [URINALYSIS] Stat Lab 09/20/18 19:[address] Un[address] showing fluid filled loops of bowel with no focal transition point but a component of obstruction may be present. Additionally shows possilbe seroma vs abscess overlying left hip arthroplasty, however low suspicion for this given afebrile and normal WBC. Spoke to Dr Ramesh electronic assembler for general surgery who recommended NGT and admit to hospitalist and he will stay on as con sult. Spoke to hospitalist who accepted patient for admission. Further orders to be placed by them. Result Diagrams: 09/20/18 19:54 09/20/18 19:54 Departure - Departure Date of Disposition Decision: 09/21/18 Time of Disposition Decision: 00:09 DIAGNOSIS: Bowel obstruction, Intractable nausea and vomiting Disposition: ADMITTED INPATIENT 09 Certified Medical Emergency: Emergent Condition: Stable Referrals and Follow-Ups: Bradley Boyd MD [Primary Care Provider] - - Critical Care Note This patient required my direct & personal management of CC.: No Attestation - Physician/ LICO Attestation Patient care was provided by Advanced Practice Provider:: No The physician spent face to face time with patient:: Yes Advanced Practice Provider documentation review:: Supervising physician onsite and consulted in the evaluation and care of this patient. The physician did have a face to face encounter with the patient. This chart was documented by the indicated scribe, (Selena Antonio Scribe) and accurately reflects the services I performed and decisions made by me, Mari Mckeon MD, as attested by the provider's signature.
--- NOTE | 2018-09-21 02:23 | HISTORY AND PHYSICAL ---
PRIMARY CARE PHYSICIAN: Dr. Shay Boyd. CHIEF COMPLAINT: Abdominal pain, nausea and vomiting x1 day. HISTORY OF PRESENT ILLNESS: The patient is an 83-year-old female with a history of hypothyroidism who had presented to the emergency department with a 1-day history of having worsening abdominal pain, nausea and vomiting. The patient states that she has been constipated for several days also. She was evaluated in the emergency department, she had imaging done which did show a possible bowel obstruction. Her case was discussed with general surgery who recommended she be admitted and an NG tube placed. Due to her presenting symptoms we will admit her to medical floor for further management. At the time of my examination the patient had denied any headache, fever, chills, chest pain, shortness of breath, hemoptysis or any weight changes, but complained of abdominal pain. PAST MEDICAL HISTORY: Includes hypothyroidism, right breast cancer. PAST SURGICAL HISTORY: Left hip surgery, abdominal surgeries, hysterectomy, and right breast lumpectomy. ALLERGIES: Compazine, and codeine. CURRENT MEDICATIONS: Include Tylenol 1000 mg p.o. q.8 hours, ferrous sulfate 325 mg p.o. daily, levothyroxine 75 mcg p.o. daily, Pantoprazole 40 mg p.o. daily, Xarelto 10 mg p.o. daily. SOCIAL HISTORY: No history of smoking, alcohol or illicit drug use. FAMILY HISTORY: Positive for coronary artery disease in father. REVIEW OF SYSTEMS: Fourteen point review of systems is as in HPI. Other systems negative. PHYSICAL EXAMINATION: GENERAL: Cooperative, friendly female. She is resting comfortably now. VITAL SIGNS: Temperature 97.6 degrees, pulse 66, respirations 13, blood pressure 163/67. HEENT: Atraumatic, normocephalic. Extraocular movements intact. PERRLA. NECK: No masses. CHEST: Clear to auscultation. CARDIOVASCULAR: Regular rate and rhythm. ABDOMEN: Soft. Hypoactive bowel sounds. EXTREMITIES: No edema. NEUROLOGIC: She is awake, alert and oriented x3. : No bladder distention. SKIN: Warm. LABORATORIES AND STUDIES: WBC 7.93, hemoglobin 11.6, hematocrit 35.0, platelets 301,000. Sodium 136, potassium 5.2, chloride 97, CO2 29, BUN is 20, creatinine 0.8, glucose is 137. ASSESSMENT: The patient is an 83-year-old female with a history of hypothyroidism who had presented to the emergency department with a 1-day history of having worsening abdominal pain, nausea and vomiting. She was evaluated in the emergency department, she had imaging done which did show bowel obstruction and subsequently she will need admission for further management. 1. Bowel obstruction. 2. Hypothyroidism. PLAN: 1. We will admit the patient to medical floor with telemetry. 2. We will continue with NG tube placement to low intermittent suction. 3. We will consult General Surgery. 4. We will hold all other home medications for now. 5. Put patient on DVT prophylaxis with SCD. 6. We will continue to follow and reassess and make further recommendation based on the patient's clinical course. cc: Finesse Freitas MD
[2018-09-21] MEDS: NS 1,000 ML IV SCH ×2 (05:10→17:33)
[2018-09-21] MEDS: ZOFRAN IV PRN ×2 (05:13→22:11)
--- NOTE | 2018-09-21 07:08 | Diag Imaging Result Doc PS360 ---
EXAM: CT ABD/PELVIS W/IV CONT ONLY 09/20/2018 HISTORY: rule out bowel obstruction TECHNIQUE: This exam was performed using automated exposure control, adjustment of mA or kV according to patient size, and/or use of iterative reconstruction technique. COMMENT: There are no previous studies available for comparison. There are some fibrotic or atelectatic opacities in both lung bases. There are bilateral pleural effusions. There is compressive atelectasis in both posterior costophrenic sulci. There is a fairly large amount of fluid in the gastric fundus and there is fluid in the distal esophagus. There is a hiatal hernia. The aorta is not distended and the mesenteric and renal arteries are patent. There is some subcutaneous edema generally. The liver, spleen, and adrenal glands are within normal limits. The pancreas is unremarkable in appearance. There are no apparent gallstones. There is ascites. The kidneys are without evidence of hydronephrosis. There are some cortical cysts in both kidneys. There is some stool in the colon including the ascending colon. There are multiple fluid-filled small bowel loops. There are surgical clips present on the right side. The distal small bowel loops appear to be normal in caliber. There is an apparent transitional zone anterior to the sacrum around image 94. Pelvis: There is no evidence of appendicitis. There is free fluid in the cul-de-sac. There has been hysterectomy. The urinary bladder is not distended. There is some gas and stool in the distal colon. There is a left hip prosthesis. This has been recently placed, skin clips still being present on the left lateral aspect of the hip. There are some fluid collections present as well as gas bubbles in the quadriceps muscle group and also posterior medially around the obturator externus. Otherwise the regional skeleton appears to be intact. IMPRESSION: 1. Bibasilar atelectasis versus pneumonia with pleural effusions. 2. Gastroesophageal reflux. 3. Partial or early small bowel obstruction. 4. Ascites and mild anasarca. 5. Postsurgical changes of left hip bipolar arthroplasty on 09/13/2018. Electronically signed by Sai Escalona 09/21/2018 7:06 AM
--- NOTE | 2018-09-21 13:13 | GENERAL SURGERY CONSULTATION ---
DATE: 09/21/2018 REQUESTING PHYSICIAN: Hospitalist service. REASON FOR CONSULTATION: Consult is concerning abdominal pain and small bowel obstruction. HISTORY OF PRESENT ILLNESS: This is an 83-year-old female with a history of hypothyroidism who presented to the emergency department with a 1-day history of worsening abdominal pain, nausea, and vomiting. She has had some issues with constipation in the past. She was admitted after having a CT scan that showed a bowel obstruction. NG tube was placed. Patient started feeling better. She has had at least 2 or 3 abdominal operations. Her last passage of flatus was this morning. Again, she is feeling somewhat better. PAST MEDICAL HISTORY: Includes hypothyroidism, history of right breast cancer. PAST SURGICAL HISTORY: Includes left hip surgery, previous surgery for what she described as colonic twisting, hysterectomy, right breast lumpectomy. ALLERGIES: Compazine and codeine. CURRENT MEDICATIONS: In MAR and reviewed. SOCIAL HISTORY: Denies alcohol, tobacco, or illicit drugs. FAMILY HISTORY: Positive for coronary artery disease. REVIEW OF SYSTEMS: A full 10 point review of systems was obtained and negative except as specified in the HPI. PHYSICAL EXAMINATION: Vital Signs: The patient is currently afebrile. Her vital signs are stable. General Examination: No acute distress. HEENT: Normocephalic, atraumatic. Pupils equal, round, reactive to light. Mucous membranes moist. Oropharynx benign. Neck: Supple. Trachea midline. Cardiovascular: Regular rate and rhythm. Lungs: Grossly clear. Abdomen: Soft, nondistended. No real peritoneal signs. Extremities: Moves all extremities. Neurologic: Grossly intact. Skin: No signs of jaundice. Vascular: All extremities perfused. LABORATORY: Reviewed. Potassium is a little bit elevated at 5.2. Remainder of labs reviewed. CT scan independently reviewed and radiology report reviewed. There is some concern about a partial obstruction. She also has some ascites. ASSESSMENT AND PLAN: An 83-year-old female with partial small-bowel obstruction. Partial small-bowel obstruction. At this time, I agree with nasogastric tube decompression. We will see how she does. We will get an abdominal film in the morning. We would like to try to hold off on surgery at this point. The patient wants to hold off on surgery too. She likely has adhesions causing obstruction. We will continue to monitor her. If any change in her clinical status, we will consider surgery. cc: MD Bradley Garner MD
--- NOTE | 2018-09-21 14:30 | GENERAL SURGERY CONSULTATION ---
DATE: 09/21/2018 HISTORY OF PRESENT ILLNESS: This is an 83-year-old female recently status post a fall that resulted in a left hip fracture and she had an ORIF of this. She was discharged to rehab and over the last of couple day, she developed worsening abdominal discomfort, distention and nausea, vomiting, and came to the ER where a CT scan was obtained that suggested ileus or partial obstruction. An NG tube was placed. She is admitted for further management. She has says she has had some bowel movements. 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 She has also had a history of breast cancer. MEDICAL HISTORY: Includes hypothyroidism. SURGICAL HISTORY: Left hip, colon resections, hysterectomy, right breast lumpectomy. MEDICATIONS: Were reviewed and significant for Xarelto 10 mg daily. SOCIAL HISTORY: No tobacco, alcohol, or drugs. FAMILY HISTORY: Reviewed and noncontributory. REVIEW OF SYSTEMS: Ten point negative. PHYSICAL EXAMINATION: Vital signs: Temperature 98.4 degrees pulse 78, blood pressure 137/57, oxygen saturation 99%. General: She is alert, in no acute distress. HEENT: There is left periorbital ecchymosis that is fading. No cervical mass. Cardiovascular: Normal rate. Pulmonary: No increased work of breathing. Abdomen: Soft, mildly distended, nontender. No peritonitis. integumentary: Warm and dry. Psychiatric: Appropriate affect. Neurologic: No gross deficits. Musculoskeletal: Some bruising of the left hip. LABORATORY DATA: White count 7, hematocrit 35, platelets 301,000, creatinine 0.8. LFTs: Mild elevation in bilirubin. Amylase and lipase normal. Urinalysis is positive for ketones, proteins, and urobilinogen. IMAGING: I reviewed her imaging, her CT scan. ASSESSMENT AND PLAN: An 83-year-old female with apparent ileus a hip repair. We will continue NG tube decompression. She will need optimization of her electrolytes, physical therapy and up and out of bed as much as possible. When I discussed this plan with the patient, she does have a history of abdominal surgery, there is some possibility she could have an adhesive bowel obstruction, but I think this is unlikely. Continue to follow along. cc: MD Bradley Abraham MD
--- NOTE | 2018-09-21 16:30 | PROGRESS NOTE ---
DATE: 09/21/2018 SUBJECTIVE: The patient was admitted yesterday. Came in with abdominal pain, nausea and vomiting for 1 day. She says she has not had a bowel movement in several days. An 83-year-old with history of hypothyroidism. Presents to the emergency room with 1-day history of worsening abdominal pain, nausea and vomiting. She has been constipated for several days. In the emergency department imaging was done which showed possible small-bowel obstruction. Discussed with General Surgery. Recommend she have an NG tube to see if we can decompress her and admit medical floor. Past medical history of hypothyroidism, history of right breast cancer. She has had left hip surgery recently. Abdominal surgeries, hysterectomy, and right breast surgery. OBJECTIVE: General: On exam, she has an NG tube in. She is more comfortable. Nauseous has dissipated. Vital Signs: Temperature 98.4 degrees, pulse 80, respirations 18, blood pressure 139/59. HEENT: Pupils are equal round. Lungs: Clear in all lung johnson. Cardiovascular: Regular rhythm and rate without murmurs. Abdomen: With diminished breath sounds. NG tube in place. Extremities: No pedal edema. ASSESSMENT AND PLAN: 1. An 83-year-old with recent hip repair. She has continuous NG tube decompression. Optimize her electrolytes. Physical therapy up and out of bed. She does have a history of abdominal surgery and so it is possible she could have some adhesive restriction or obstruction. Continue present medications. IV fluid. 2. Recent hip surgery. We will continue physical therapy. 3. Hypothyroidism. REVIEW OF MEDICATIONS: I do not see any change at this point. She is NPO. LABORATORY DATA: Hematocrit 35, hemoglobin 11. White count normal. Electrolytes look good. Albumin 3.3. cc: Bradley Boyd MD
--- NOTE | 2018-09-22 04:52 | GENERAL SURGERY PROGRESS NOTE ---
DATE: 09/22/2018 SUBJECTIVE: Patient seems to be doing a little bit better. She has a little bit of nausea, but passed some gas. OBJECTIVE: Vital Signs: Patient is currently afebrile. Her vital signs are stable. General: No acute distress. HEENT: Normocephalic, atraumatic. Pupils equal, round, reactive to light. Mucous membranes moist. Oropharynx benign. Neck: Supple. Trachea midline. Cardiovascular: Regular rate and rhythm. Lungs: Grossly clear. Abdomen: Soft, nondistended. No real tenderness. Extremities: Moves all extremities. Neurologic: Grossly intact. Skin: No signs of jaundice. Vascular: All extremities perfused. LABORATORY: None this morning as of yet. IMAGING: Pending for this morning. ASSESSMENT AND PLAN: An 83-year-old with small-bowel obstruction Small-bowel obstruction. At this time, we will continue nasogastric tube decompression. We will follow up with a.m. x-ray. If it seems to be improving, may consider clamping or even removing the nasogastric tube. Otherwise, patient seems to be doing well. cc: MD Bradley Garner MD
[2018-09-22 07:42] LABS: EOS# 0.01 X1000 (0.0-0.7); EOS% 0.1 % (0.0-10.0); HEMOGLOBIN 11.1 g/dL (12.0-16.0); IMM GRAN# 0.03 X1000 (0.0-0.04); IMM GRAN% 0.2 % (0.0-0.5); LYMPH# 0.57 X1000 (1.2-3.4); LYMPH% 4.5 % (20.5-51.1); MCHC 32.6 g/dL (33-37); MONO# 0.69 X1000 (0.11-0.59); MONO% 5.5 % (1.7-9.3); NEUT# 11.33 X1000 (1.4-6.5); NEUT% 89.7 % (42.2-75.2); PLT 372 X1000 (130-400); RBC 3.58 XMIL (4.2-5.4); RDW 13.6 % (11.5-14.5); WBC 12.63 X1000 (4.8-10.8)
[2018-09-22 08:04] LABS: AGAP 8; BUN 24 mg/dL (8-22); CALCIUM 8.5 mg/dL (8.8-10.2); CHLORIDE 103 mmol/L (98-107); COSMO 279; CREATININE 0.7 mg/dL (0.5-0.9); ESTIMATED GFR > 60; GLUCOSE 117 mg/dL (70-104); POTASSIUM 4.3 mmol/L (3.5-5.1); SODIUM 137 mmol/L (136-145); TCO2 26 mmol/L (25-35)
[2018-09-22] MEDS: ZOFRAN IV PRN (08:24)
--- NOTE | 2018-09-22 09:20 | Diag Imaging Result Doc PS360 ---
EXAM: FLAT/UPRIGHT ABD/1 VIEW CHEST 09/22/2018 HISTORY: follow up obstruction TECHNIQUE: AP upright chest and flat and upright abdomen at 0859 COMMENT: There is an NG tube with its tip below the diaphragm. There may be minimal platelike atelectasis in the left costophrenic angle region, otherwise compared to 09/12/2018 there has been no significant change considering differences in inspiration. There is stool throughout the ascending and transverse colon and to some extent formed stool seen throughout the descending and sigmoid colon. There is two loops of small bowel which are distended with gas on the left side of the abdomen. The stomach is not distended. There is no evidence of organomegaly or mass. There has apparently been recent left bipolar hip arthroplasty. IMPRESSION: Constipation. Ileus versus partial small bowel obstruction. Electronically signed by Sai Escalona 09/22/2018 9:18 AM
--- NOTE | 2018-09-22 10:06 | PROGRESS NOTE ---
DATE: 09/22/2018 SUBJECTIVE: Ms. Greenwood is feeling better. She feels some rumbling in her abdomen. She still has an NG tube in. She just finished her physical therapy from this morning. OBJECTIVE: Temperature 98 degrees, pulse 75, respirations 18, and blood pressure 132/59. Pupils are equal and round. Lungs are clear in all lung johnson. Cardiovascular exam with regular rhythm and rate without murmur or S3. Abdomen is soft. Skin is warm and dry. LABORATORY: Reviewed labs from yesterday. Electrolytes all look good. Sodium 137, potassium 4.3, chloride 103, bicarbonate was 26, BUN 24, and creatinine 0.7. Abdominal x-ray showed constipation versus partial small bowel obstruction. ASSESSMENT AND PLAN: She seems to be doing a little better. Continue physical therapy. Continue NG suction. Review of her orders. I do not see any change. cc: Bradley Boyd MD
--- NOTE | 2018-09-23 06:02 | GENERAL SURGERY PROGRESS NOTE ---
DATE: 09/23/2018 SUBJECTIVE: Patient says she is passing gas. She is feeling better. OBJECTIVE: Vital Signs: Patient is currently afebrile. Her vital signs are stable. General: No acute distress. HEENT: Normocephalic, atraumatic. Pupils equal, round, reactive to light. Mucous membranes moist. Oropharynx benign. Neck: Supple. Trachea midline. Cardiovascular: Regular rate and rhythm. Lungs: Grossly clear. Abdomen: Soft, nondistended, nontender. Bowel sounds auscultated. Extremities: Moves all extremities. Neurologic: Grossly intact. Skin: No signs of jaundice. Vascular: All extremities perfused. LABORATORY: Reviewed from yesterday. White blood cell count is slightly elevated at 12, hematocrit 34. Remainder of labs reviewed. ASSESSMENT AND PLAN: An 83-year-old female with bowel obstruction. Bowel obstruction. At this time she seems to be improving. I reviewed her film from yesterday, it overall looks better to me. Will remove her nasogastric tube and start her on clear liquids and monitor her closely. cc: MD Bradley Garner MD
[2018-09-23] MEDS: ZOFRAN IV PRN ×3 (07:06→22:55)
--- NOTE | 2018-09-23 16:12 | PROGRESS NOTE ---
DATE: 09/23/2018 SUBJECTIVE: Ms. Greenwood is feeling a little better, nausea has diminished. NG tube is out. They are getting her up. Overall, I think she feels like her stomach is rumbling. She has not passed much gas. No bowel movement yet. OBJECTIVE: Temperature 97.6 degrees, pulse 78, respirations 19, and blood pressure 140/57. Pupils are equal and round. Lungs are clear in all lung johnson. Cardiovascular exam with regular rhythm and rate without murmur or S3. Abdomen is soft. Skin is warm and dry. Hayes catheter in place. NG tube is out. ASSESSMENT AND PLAN: 1. An 83-year-old status post hip surgery with bowel obstruction. She seems to be improving and overall looks better so we removed the NG tube. Continue physical therapy. Continue present management. 2. She is on a liquid diet. We will advance it as we can. 3. Review of her orders, I do not see any change. She is on Zofran 4 mg q.4 hours p.r.n. 4. Review of her labs from yesterday, hematocrit is stable at 34. Blood sugars 137 to 131. cc: Bradley Boyd MD MTDD
[2018-09-24] MEDS: ZOFRAN IV PRN ×5 (03:39→22:55)
--- NOTE | 2018-09-24 06:41 | GENERAL SURGERY PROGRESS NOTE ---
DATE: 09/24/2018 SUBJECTIVE: Patient did have some nausea and emesis yesterday. OBJECTIVE: Vital Signs: Patient is currently afebrile. Her vital signs are stable. General: No acute distress. female looks stated age. HEENT: Normocephalic, atraumatic. Pupils equal, round, reactive to light. Mucous membranes moist. Oropharynx benign. Neck: Supple. Trachea midline. Cardiovascular: Regular rate and rhythm. Lungs: Grossly clear. Abdomen: Soft, nondistended, some hypoactive bowel sounds. Extremities: Moves all extremities. Neurologic: Grossly intact. Skin: No signs of jaundice. Vascular: All extremities perfused. LABORATORY: None this morning. ASSESSMENT AND PLAN: An 83-year-old with a bowel obstruction. Bowel obstruction. At this time, she has had a little bit decrease in her bowel function. She is not nauseated. We will make her NPO given the fact that she does not have any IV fluids running. She is NPO. We will put her on lactated Ringer's running at 70 to see if we can keep her hydrated. Hopefully, she will have return of bowel function. Otherwise, continue current treatment. My partner will cover over the weekend. cc: MD Bradley Garnre MD
[2018-09-24] MEDS: LR 1,000 ML IV SCH ×2 (07:39→21:59)
--- NOTE | 2018-09-24 09:51 | PROGRESS NOTE ---
DATE: 09/24/2018 Ms Greenwood is resting comfortably sleeping. NG tube is still out. OBJECTIVE: Vital Signs: Afebrile, temp 97.9 degrees, pulse 80, respirations 19, blood pressure 129/52. HEENT: Pupils are equal, round. Lungs: Are clear in all lung johnson. Cardiovascular: Regular rhythm and rate without murmur or S3. Abdomen: Soft. Skin: Warm and dry. ASSESSMENT AND PLAN: 1. Appears to have small bowel ileus which is improving. She is getting lactated Ringer's at about 70 mL an hour to keep her hydrated. Continue physical therapy. She has Zofran for nausea. 2. Nutrition. On a liquid diet at the present time. I would like to advance that when her bowels are working better. Review of her lab: I will check some more labs in the morning. Check a Chem 22 and recheck her magnesium. I think it would be worthwhile to check a T4, TSH, B12 and folate as well. Her amylase and lipase are normal. cc: Bradley Boyd MD
[2018-09-24] MEDS ORDERED: DULCOLAX PR PRN (15:35)
[2018-09-24] MEDS: MILK OF MAGNESIA PO PRN (16:01)
[2018-09-25] MEDS: ZOFRAN IV PRN ×3 (03:47→22:42)
[2018-09-25 06:57] LABS: BASO# 0.01 X1000 (0.0-0.2); BASO% 0.1 % (0.0-0.8); HEMATOCRIT 34.3 % (37.0-47.0); HEMOGLOBIN 11.2 g/dL (12.0-16.0); IMM GRAN# 0.07 X1000 (0.0-0.04); IMM GRAN% 0.4 % (0.0-0.5); LYMPH# 0.29 X1000 (1.2-3.4); LYMPH% 1.6 % (20.5-51.1); MCH 30.8 PG (27-31); MCHC 32.7 g/dL (33-37); MCV 94.2 FL (81-99); MONO# 0.52 X1000 (0.11-0.59); MONO% 2.8 % (1.7-9.3); NEUT# 17.51 X1000 (1.4-6.5); NEUT% 95.1 % (42.2-75.2); PLT 427 X1000 (130-400); RBC 3.64 XMIL (4.2-5.4); RDW 13.5 % (11.5-14.5)
[2018-09-25 07:29] LABS: AGAP 16; ALB/GLOB RATIO 1.1; ALBUMIN 3.2 g/dL (3.5-5.0); ALKALINE PHOSPHATASE 92 U/L (32-104); BUN 39 mg/dL (8-22); CALCIUM 8.9 mg/dL (8.8-10.2); CHLORIDE 96 mmol/L (98-107); COSMO 288; CREATININE 0.8 mg/dL (0.5-0.9); ESTIMATED GFR > 60; GLUCOSE 114 mg/dL (70-104); GOT 19 U/L (10-30); GPT 13 U/L (10-36); MAGNESIUM 2.2 mg/dL (1.5-2.7); SODIUM 139 mmol/L (136-145); TCO2 27 mmol/L (25-35)
[2018-09-25 07:48] LABS: FREE T4 0.46 ng/dL (0.93-1.70); TSH 7.26 uIUmL (0.27-4.20)
[2018-09-25] MEDS ORDERED: REGLAN IV SCH (09:00)
--- NOTE | 2018-09-25 09:09 | PROGRESS NOTE ---
DATE: 09/25/2018 SUBJECTIVE: Ms. Greenwood had a miserable night. Her NG tube is still out. She is nauseated, though, and she threw up a couple times. She did disimpact herself rectal impaction yesterday, and had a little bowel movement and some loose stool. OBJECTIVE: Vital Signs: Temperature 98 degrees, pulse 70, respirations 18, blood pressure 128/50. Eyes: Pupils are equal. Lungs: Clear in all lung johnson. Cardiovascular exam: Regular rhythm and rate without murmur or S3. Abdomen: Soft and I do hear bowel sounds, but just generally uncomfortable and she is hurting in her lower abdomen. LABS: Her white count is 18,400, hematocrit is 34, platelet count is 427,000. Sodium 139, potassium 4.0, chloride 96. BUN 39, creatinine 0.8. Checked T4, TSH, B 12 and folate, and they look appropriate. ASSESSMENT AND PLAN: She appears to be in ileus. Still having some more nausea. Will continue intravenous fluids. She is on nothing by mouth, getting lactated Ringer's for hydration. Her white count has gone up. I think that is stress related to nausea and demargination, but I do not see any evidence of bacterial infection. Creatinine is 0.8, sodium 139, potassium 4.0, chloride 96. I am going to ask Gastroenterology to help. She still seems to have significant nausea, and I am going to try some enemas today. We are going to get her up in a chair a couple times a day. I will put her back on clear liquids, but she has to just be careful. She wants some liquids and some ice chips. She is pretty uncomfortable, but we cannot use opioid pain medicine. I am going to try some Reglan 10 mg intravenous every 6 hours. Will continue her Zofran and try and increase activity and ask Gastroenterology to help. cc: Bradley Boyd MD
--- NOTE | 2018-09-25 09:56 | Diag Imaging Result Doc PS360 ---
EXAM: ABDOMEN FLAT/UPRIGHT INDICATION: ileus TECHNIQUE: 2 views COMPARISON: 09/22/2018 FINDINGS: Distended loops of small bowel suggesting ileus are again identified. And mainly involves the left side of the abdomen likely previous study. There actually appear to be a few more involvement loops of small bowel as compared to the previous study. The stomach is also distended now. No large volume free abdominal gas is appreciated. The abdomen is stable, otherwise. IMPRESSION: 1.Persistent distended loops of small bowel suggesting ileus in the left side of the abdomen that may involve a few more loops than the previous study. 2.Gaseous distention of the stomach. Electronically signed by Ki Antonio 09/25/2018 9:54 AM
[2018-09-25] MEDS: LR 1,000 ML IV SCH (11:46)
--- NOTE | 2018-09-25 18:56 | GENERAL SURGERY PROGRESS NOTE ---
DATE: 09/25/2018 SUBJECTIVE: Ms. Greenwood continues to be nauseated. Her x-ray shows air in her small bowel as well as air in her stomach. PLAN: She does not have an NG tube in. If she does not improve by tomorrow, she probably would benefit from replacement of an NG tube until her ileus resolves. cc: MD Bradley Barfield MD
--- NOTE | 2018-09-25 19:34 | Diag Imaging Result Doc PS360 ---
EXAM: CHEST/ABD TUBE PLACEMENT INDICATION: NG tube placement TECHNIQUE: One view COMPARISON: 09/25/2018 FINDINGS: The newly placed NG tube passes below the diaphragm but then loops back. The tip projects above the gastroesophageal junction in the distal esophagus. Repositioning of the tube is recommended. Limited views of the upper abdomen are stable as compared to the recent prior study. IMPRESSION: Malpositioned NG tube with the tip apparently looped back into the distal esophagus. Electronically signed by Ki Antonio 09/25/2018 7:32 PM
--- NOTE | 2018-09-25 19:48 | GASTROENTEROLOGY CONSULTATION ---
DATE: 09/25/2018 REASON FOR CONSULTATION: Abdominal distention and ileus. HISTORY OF PRESENT ILLNESS: This pleasant lady who came in with left hip fracture, status post ORIF, has developed abdominal distention, nausea and vomiting. The patient had a partial small- bowel obstruction, and initially NG tube was placed. After she was a little better the NG was removed. The patient had a volvulus of the colon and had part of the colon removed. Her ileus is approximately in the same area now. PAST MEDICAL HISTORY: Hypothyroidism. PAST SURGICAL HISTORY: Colon resection, left hip, hysterectomy and lumpectomy. MEDICATIONS: Reviewed, including Xarelto. SOCIAL HISTORY: Negative. PHYSICAL EXAMINATION: Temperature 98 degrees, pulse 78, blood pressure 137/57, O2 saturation 99%. HEENT: Conjunctival pallor. Neck supple. Trachea midline. Heart and lungs are normal. Abdomen distended. No peritoneal signs, but does have tenderness on the left side. LABORATORY DATA: White count has increased today to 18. BUN also increased to 39. DIAGNOSTIC DATA: I have reviewed the abdominal x-ray today, which showed persistent distended loops of small bowel on the left side of the abdomen, which actually increased including gastric distention. IMPRESSION AND PLAN: 1. The patient most likely has a partial small-bowel obstruction related to adhesions, which is once again related to her colon surgery for volvulus. It appears worse. 2. She also has significant leukocytosis which was not there 2-3 days ago. She may need nasogastric tube reinsertion and suction, and also recommend Surgery revisiting. She may require lysis of adhesions if it is obstruction from adhesions. 3. Symptomatic treatment with Zofran. 4. Possible antibiotic coverage. 5. Nutritional support. We will see how she does after nasogastric tube reinsertion. It appears she may require a quick laparoscopy and lysis of adhesions to resolve this. I am also concerned about the leukocytosis which started now. cc: MD Bradley Marshall MD
[2018-09-25] MEDS ORDERED: DEMEROL IV ONE (21:02)
[2018-09-26] MEDS: ZOFRAN IV PRN (04:32)
[2018-09-26] MEDS: LR 1,000 ML IV SCH ×3 (06:30→16:27)
--- NOTE | 2018-09-26 08:37 | Diag Imaging Result Doc PS360 ---
EXAM: CHEST/ABD TUBE PLACEMENT INDICATION: NG tube placement TECHNIQUE: One view COMPARISON: 09/25/2018 FINDINGS: The NG tube has been advanced. However, the tip is still looped back into the distal esophagus. Withdrawal and re-advancement of the tube is recommended. Limited views of the chest and upper abdomen are stable, otherwise. IMPRESSION: Advancement of the NG tube during the interval. However, it is still malpositioned with the tip looping back into the distal esophagus. Electronically signed by Ki Antonio 09/26/2018 8:35 AM
--- NOTE | 2018-09-26 08:40 | PROGRESS NOTE ---
DATE: 09/26/2018 SUBJECTIVE: Ms. Greenwood has had a pretty miserable day. NG tube was replaced. Dr. Alarcon saw. He is concerned about possible volvulus or mechanical obstruction. She had disimpacted a few balls of hard stool by her report yesterday. Urine output is good. I put her back on liquids but she is just taking a few sips of water and still very uncomfortable. PHYSICAL EXAMINATION: Vital Signs: Temperature 97.9 degrees, pulse 86, respirations 18, blood pressure 132/52. HEENT: Pupils are equal and round. No distended neck veins. Lungs: Clear anterolateral. Cardiovascular Examination: Regular rhythm and rate without murmur or S3. Abdomen: There are positive bowel sounds but the abdomen is generally uncomfortable. It is not really distended. NG tube in place. Extremities: No pedal edema. Is and Os: Urine output was 2900 mL. She has the NG tube back but apparently it moved back into the distal esophagus. ASSESSMENT AND PLAN: 1. The patient most likely with small bowel obstruction related to adhesions which was probably related to her colon surgery that she had for a volvulus. It does not appear to be improving. She had significant leukocytosis 2 or 3 days ago and so we replaced the nasogastric tube because of nausea. I am going to ask surgery to evaluate. We will continue conservative treatment. She is very uncomfortable. I am giving her Zofran for nausea. I do not see evidence of a bacterial infection. White count is still elevated. Repeat a CBC and electrolytes. Her electrolytes look good. Renal function looks like it is doing well. Thyroid functions and B12 and folate within normal limits. 2. She recently had a hip fracture and repair. cc: Bradley Boyd MD
--- NOTE | 2018-09-26 10:05 | GENERAL SURGERY PROGRESS NOTE ---
DATE: 09/26/2018 OBJECTIVE: Ms. Greenwood is afebrile, heart rate 86, blood pressure 132/52. She now has an NG tube in with 1200 mL out. Abdomen remains quiet. LABORATORY DATA: BUN is up to 39, creatinine 0.8. ASSESSMENT: In questioning Ms. Greenwood, she has a long history of constipation, requiring daily milk of magnesia and Colace, so her postoperative ileus and narcotics have exacerbated her ileus. I agree with replacement of her nasogastric tube. I think she should continue with nasogastric suction, bowel rest, and hydration, and try to stop her narcotics as soon as we can in order to give her bowels a chance to wake up. Will repeat a flat and upright of the abdomen tomorrow. cc: MD Bradley Barfield MD
[2018-09-26 10:08] LABS: BASO# 0.02 X1000 (0.0-0.2); BASO% 0.2 % (0.0-0.8); HEMATOCRIT 39.1 % (37.0-47.0); HEMOGLOBIN 12.8 g/dL (12.0-16.0); IMM GRAN# 0.03 X1000 (0.0-0.04); IMM GRAN% 0.3 % (0.0-0.5); LYMPH# 0.31 X1000 (1.2-3.4); LYMPH% 2.8 % (20.5-51.1); MCH 31.4 PG (27-31); MCHC 32.7 g/dL (33-37); MCV 96.1 FL (81-99); MONO# 0.59 X1000 (0.11-0.59); MONO% 5.4 % (1.7-9.3); MPV 10.8 FL (7.4-10.4); NEUT# 9.93 X1000 (1.4-6.5); NEUT% 91.3 % (42.2-75.2); PLT 358 X1000 (130-400); RBC 4.07 XMIL (4.2-5.4); RDW 14.2 % (11.5-14.5); WBC 10.88 X1000 (4.8-10.8)
[2018-09-26 10:25] LABS: ALB/GLOB RATIO 0.9; ALBUMIN 2.8 g/dL (3.5-5.0); CALCIUM 9.2 mg/dL (8.8-10.2); CREATININE 1.1 mg/dL (0.5-0.9); POTASSIUM 3.9 mmol/L (3.5-5.1)
[2018-09-27] MEDS: LR 1,000 ML IV SCH ×3 (01:17→17:39)
--- NOTE | 2018-09-27 06:39 | GENERAL SURGERY PROGRESS NOTE ---
DATE: 09/27/2018 SUBJECTIVE: Patient says she is feeling a little bit better today. She did report that she had a rough weekend. OBJECTIVE: Vital Signs: Patient is currently afebrile. Her vital signs are stable. General: No acute distress. HEENT: Normocephalic, atraumatic. Pupils equal, round, reactive to light. Mucous membranes moist. Oropharynx benign. Neck: Supple trachea midline. Cardiovascular: Regular rate and rhythm. Lungs: Grossly clear. Abdomen: Soft. Really nondistended at this point. Hypoactive bowel sounds. Extremities: Moves all extremities. Neurologic: Grossly intact. Skin: No signs of jaundice. Vascular: All extremities perfused. LABORATORY: Reviewed from yesterday. Labs from this morning, none. IMAGING: Scheduled. ASSESSMENT AND PLAN: An 83-year-old with persistent partial small bowel obstruction. 1. Small bowel obstruction. At this time, clinically, patient seems to have done a little bit better over the course of the weekend, although she did have a rough weekend. Question given with hypoactive bowel sounds, this may be an ileus. Try to limit how much pain medicine she gets. Her abdominal films have been a little bit worse on Thursday, so I will get a small-bowel series in addition to the abdominal film that she has ordered for this morning. If it shows passage of contrast through without an obvious obstruction, may be just try to ride her out. If there is a point of obstruction may need to consider intervention. This was all discussed with the patient. 2. Leukocytosis. The patient did have leukocytosis of 18 on Thursday, but has trended down to 10. Her hematocrit actually has gone up, which makes me think that it is a legitimate decrease in her leukocytosis and not dilutional. We will just monitor for right now. She does not appear to be septic. cc: MD Bradley Garner MD
--- NOTE | 2018-09-27 09:35 | Diag Imaging Result Doc PS360 ---
FLAT/UPRIGHT ABD/1 VIEW CHEST - 09/27/2018 INDICATION: ileus TECHNIQUE: COMPARISON: 09/25/2018 FINDINGS: There is a nasogastric tube in the stomach that is doubled over and the tip is back up in the distal esophagus. There is a significant small bowel obstruction with some gas-distended loops of small bowel measuring up to 5.3 cm. No definite free air. No definite colon or rectal gas. There are surgical skin chantel over the left pelvis. There is a left femoral head prosthesis. IMPRESSION: 1. High-grade small bowel obstruction. 2. Nasogastric tube is doubled over in the stomach, and the tip is in the distal esophagus. Adjustment recommended. Electronically signed by Pj Salgado 09/27/2018 9:33 AM
--- NOTE | 2018-09-27 11:27 | GASTROENTEROLOGY PROGRESS NOTE ---
DATE: 09/27/2018 SUBJECTIVE: Patient resting in bed. She just came back from a small bowel series. I just looked at the results of the small bowel series which showed evidence of high-grade small bowel obstruction and nasogastric tube is doubled over in the stomach and the tip is in the distal esophagus. Adjustment is recommended. The General Surgery Team is on board. She complains of abdominal discomfort and nausea. 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 She has history of chronic constipation. BODY WEIGHT: 115 pounds. BMI 18.6 kg. OBJECTIVE: Vital Signs: Temperature 97.7 degrees, pulse rate of 70, respiratory rate 14, blood pressure 127/48, saturating 97% on room air. General appearance: The patient is thinly built, lying in bed, in no acute distress HEENT: No pallor. No icterus. Nasal cannula in place. Neck: Supple. Abdomen: Soft, mildly protuberant. No guarding or rebound. Extremities: No cyanosis or clubbing. Neurologic: She is awake, alert, oriented x3. LABORATORIES: Hemoglobin and hematocrit is 12.8 and 39.1, white count of 10.8, platelet count of 358,000. Sodium 138, potassium 3.9, chloride 95, bicarb of 31, anion gap 12, BUN of 52, creatinine 1, glucose of 118, calcium is 9.2, total bilirubin is 1, AST 18, ALT 10, alkaline phosphatase 100, total protein 6, albumin of 2.8. Urine culture showing Enterococcus faecalis, group D. Abdominal x-ray described in history of present illness. IMPRESSION AND PLAN: 1. Small-bowel obstruction. General Surgery is on board. She has an NG tube to intermittent suction. They have to readjust the NG tube as per the Radiology recommendations. 2. Constipation. We will try Dulcolax twice daily. 3. Leukocytosis is coming down. 4. We will start her on gastrointestinal prophylaxis with Protonix once daily. 5. She is on IV fluids and IV pain control, IV antiemetics. 6. The above plan of care was discussed with the patient's nurse and the patient and all questions answered. Please call us with questions. cc: MD Bradley Baxter MD Matthew L. Figh, MD
--- NOTE | 2018-09-27 15:06 | PROGRESS NOTE ---
DATE: 09/27/2018 Ms. Greenwood is still uncomfortable. She has passed a little bit of gas by her report. She had a small-bowel x-ray this morning. PHYSICAL EXAM: Temperature 97.8 degrees, pulse 90, respirations 14, blood pressure 140/59. Pupils are equal round.Lungs: Clear in all lung johnson. Cardiovascular: Regular rhythm and rate without murmur or S3. Abdomen: Is nondistended at this point and seems to be softer. Her urine output is 5000 mL. ASSESSMENT AND PLAN: 1. Small-bowel obstruction. Patient seems to have been a little bit better. He had a pretty rough weekend. Today has been a little bit better. General surgery and gastroenterology involved and felt like the x-rays a little bit worse on Thursday so got small bowel passage contrast which did not show any mechanical obstruction so continue conservative therapy. I think Dr. Stroud is going to try some milk of magnesia through the NG tube and maybe Dulcolax suppository. No leukocytosis. I suspect this is demargination from stress. I do not see a bacterial or infectious source. 2. Constipation. Getting Dulcolax twice a day. 3. Continue Protonix for GI prophylaxis and continue IV fluids and antiemetics. Will continue physical therapy. She had a hip fracture internal fixation about 2 weeks ago. Appreciate all the help. LABORATORY: Review of lab from yesterday hematocrit stable 39, hemoglobin is 12. Electrolytes look good. Her creatinine did go up to 1.1. White blood cell count is down to 10,880. cc: Bradley Boyd MD
--- NOTE | 2018-09-27 17:24 | Diag Imaging Result Doc PS360 ---
EXAM: SMALL BOWEL SERIES ONLY HISTORY: bowel obstruction TECHNIQUE: Small bowel series. Eight films submitted. COMPARISON: None. FINDINGS: Nasogastric tube is in the stomach. There are surgical clips in the right lower quadrant. Skin chantel overlie the left lateral pelvis. Oral contrast was placed into the stomach with filling of multiple dilated proximal small bowel loops. Images taken at 40 minutes, 90 minutes, 2.5 hours, 3.5 hours, and 5.5 hours. Each of these films show contrast within dilated proximal and mid small bowel loops. A 7.5 hour film was taken and all of the oral contrast has been vomited. No further films will be taken due to the absence of oral contrast. IMPRESSION: Mid to distal small bowel obstruction. Electronically signed by Ferny Ortiz 09/27/2018 5:22 PM
[2018-09-27] MEDS: PROTONIX IV SCH (17:38)
[2018-09-27] MEDS: SODIUM CHLORIDE 0.9% INJ SCH (17:39)
[2018-09-27] MEDS: MILK OF MAGNESIA PO PRN (21:42)
[2018-09-27] MEDS: DULCOLAX PR SCH (21:42)
[2018-09-28] MEDS: LR 1,000 ML IV SCH ×3 (01:22→18:04)
--- NOTE | 2018-09-28 07:28 | GENERAL SURGERY PROGRESS NOTE ---
DATE: 09/28/2018 SUBJECTIVE: The patient had difficulty with the small bowel follow through. The images did not make it very far, and she threw it up after like 7 hours. OBJECTIVE: Vital Signs: The patient is currently afebrile. Her vital signs are stable. General: On exam, no acute distress. HEENT: Normocephalic, atraumatic. Pupils equal, round, reactive to light. Mucous membranes moist. Oropharynx benign. Neck: Supple. Trachea midline. Cardiovascular: Regular rate and rhythm. Lungs: Grossly clear. Abdomen: Soft, nontender, nondistended. Hypoactive bowel sounds. Extremities: Moves all extremities. Neurologic: Grossly intact. Skin: No signs of jaundice. Vascular: All extremities perfused. LABORATORY: None this morning as of yet. ASSESSMENT AND PLAN: An 83-year-old with possible small bowel obstruction versus ileus. Obstruction versus ileus: At this time, given the fact that the images did not go very far as far as the contrast and she has a little hypoactive bowel sounds, this may be more of an ileus like pattern. Regardless, she has not had any return of bowel function. She does not look septic at this point, and she does not look toxic, so we will give her a couple more days to see if she can improve. If she does not, we may need to consider surgical intervention. This was discussed with the patient. cc: MD Bradley Garner MD
[2018-09-28] MEDS: DULCOLAX PR SCH ×2 (10:56→21:31)
[2018-09-28] MEDS: PROTONIX IV SCH (10:56)
[2018-09-28] MEDS: MILK OF MAGNESIA PO PRN (21:31)
--- NOTE | 2018-09-28 22:15 | PROVIDER PROGRESS NOTE ---
Progress Note SUBJECTIVE: No acute overnight events. No N/V/F, CP, SOB, abdominal pain. No BM. NPO. OBJECTIVE Last Vital Signs Temp 98.8 F 09/28/18 19:33 Pulse 69 09/28/18 19:33 Resp 18 09/28/18 17:38 BP 130/48 09/28/18 19:33 Pulse Ox 98 09/28/18 20:05 Height 5 ft 6 in Weight 115 lb GEN: awake, alert, NAD HEENT: NGT in place with 700mL of bilious fluid in reservoir, MMM, anicteric NECK: no JVD, LAD CV: RRR, mrg PULM: CTAB, no wheezing or crackles ABD: soft, NT/ND, hypoactive BS, no rebound or guarding EXT: no cce NEURO: nonfocal IMAGING EXAM: SMALL BOWEL SERIES ONLY 09/27/2018 HISTORY: bowel obstruction TECHNIQUE: Small bowel series. Eight films submitted. COMPARISON: None. FINDINGS: Nasogastric tube is in the stomach. There are surgical clips in the right lower quadrant. Skin chantel overlie the left lateral pelvis. Oral contrast was placed into the stomach with filling of multiple dilated proximal small bowel loops. Images taken at 40 minutes, 90 minutes, 2.5 hours, 3.5 hours, and 5.5 hours. Each of these films show contrast within dilated proximal and mid small bowel loops. A 7.5 hour film was taken and all of the oral contrast has been vomited. No further films will be taken due to the absence of oral contrast. IMPRESSION: Mid to distal small bowel obstruction. A/P: Ms. Kristen Greenwood is a 83 year old woman admitted with small bowel obstruction s/p NGT decompression. She clinically appears improving. She denies N/V and abdominal pain. VSS. Abdominal exam is benign. SBFT yesterday showed mid to distal SB obstruction but incomplete given vomiting of contrast. Surgery following, apprec recs #SBO: abdomen benign, NGT to LIWS; on IVFs, Clinimix, antiemetics prn; analgesics prn; recommend clapping NGT overnight #Constipation: on dulcolax BID #GI ppx: on PPI #Leukocytosis: improving: no labs today; check labs tomorrow Will follow with you
[2018-09-29 00:39] LABS: BASO# 0.07 X1000 (0.0-0.2); BASO% 0.8 % (0.0-0.8); EOS# 0.04 X1000 (0.0-0.7); EOS% 0.4 % (0.0-10.0); HEMATOCRIT 39.3 % (37.0-47.0); HEMOGLOBIN 12.4 g/dL (12.0-16.0); IMM GRAN# 0.08 X1000 (0.0-0.04); IMM GRAN% 0.9 % (0.0-0.5); LYMPH# 0.33 X1000 (1.2-3.4); LYMPH% 3.6 % (20.5-51.1); MCH 31.3 PG (27-31); MCHC 31.6 g/dL (33-37); MCV 99.2 FL (81-99); MONO# 0.53 X1000 (0.11-0.59); MONO% 5.7 % (1.7-9.3); MPV 9.7 FL (7.4-10.4); NEUT# 8.17 X1000 (1.4-6.5); NEUT% 88.6 % (42.2-75.2); PLT 319 X1000 (130-400); RBC 3.96 XMIL (4.2-5.4); RDW 13.9 % (11.5-14.5); WBC 9.22 X1000 (4.8-10.8)
[2018-09-29 00:46] LABS: AGAP 16; ALB/GLOB RATIO 0.8; ALBUMIN 2.5 g/dL (3.5-5.0); ALKALINE PHOSPHATASE 109 U/L (32-104); BUN 22 mg/dL (8-22); CALCIUM 8.4 mg/dL (8.8-10.2); CHLORIDE 96 mmol/L (98-107); COSMO 280; CREATININE 0.6 mg/dL (0.5-0.9); ESTIMATED GFR > 60; GLUCOSE 80 mg/dL (70-104); GOT 22 U/L (10-30); GPT 9 U/L (10-36); POTASSIUM 3.4 mmol/L (3.5-5.1); SODIUM 139 mmol/L (136-145); TCO2 27 mmol/L (25-35); TOTAL PROTEIN 5.6 g/dL (6.3-8.3)
[2018-09-29] MEDS: LR 1,000 ML IV SCH ×4 (01:11→20:16)
--- NOTE | 2018-09-29 06:34 | GENERAL SURGERY PROGRESS NOTE ---
DATE: 09/29/2018 SUBJECTIVE: Patient seems to be doing better. She has had what she reports is 3 bowel movements. She is a little bit sick to her stomach, but otherwise feels better. OBJECTIVE: Vital Signs: Patient is currently afebrile. Her vital signs stable. General: No acute distress. HEENT: Normocephalic, atraumatic. Pupils equal, round, react to light. Mucous membranes moist. Oropharynx benign. Neck: Supple. Trachea midline. Cardiovascular: Regular rate and rhythm. Lungs: Grossly clear. Abdomen: Soft, nondistended. Better bowel sounds auscultated this morning. Nontender. Extremities: Moves all extremities. Neurologic: Grossly intact. Skin: No signs of jaundice. Vascular: All extremities perfused. LABORATORY: Reviewed from yesterday. ASSESSMENT AND PLAN: An 83-year-old female with possible small-bowel obstruction versus ileus. Obstruction versus ileus. At this time, she has made some improvements. She is still a little sick to her stomach, so we will keep her nasogastric tube in place. We will get a flat and upright abdominal film this morning and follow up with the progress, but hopefully, we can avoid any kind of surgical intervention. cc: MD Bradley Garner MD
--- NOTE | 2018-09-29 07:22 | Diag Imaging Result Doc PS360 ---
EXAM: ABDOMEN FLAT/UPRIGHT INDICATION: follow up obstruction/ileus TECHNIQUE: 2 views COMPARISON: 09/27/2018 FINDINGS: There are persistent gas distended loops of small bowel consistent with postsurgical ileus. However, there is less distention than the previous study. No large volume free abdominal gas is identified. The abdomen is stable, otherwise. IMPRESSION: Interval improvement of gaseous distention of small bowel. Electronically signed by Ki Antonio 09/29/2018 7:20 AM
[2018-09-29] MEDS: DULCOLAX PR SCH ×2 (09:46→20:16)
[2018-09-29] MEDS: SODIUM CHLORIDE 0.9% INJ SCH (12:39)
[2018-09-29] MEDS: PROTONIX IV SCH (12:39)
--- NOTE | 2018-09-29 13:44 | PROVIDER PROGRESS NOTE ---
Progress Note SUBJECTIVE: Patient had some mild abdominal discomfort with clamping NGT overnight. No N/V/F, CP, SOB. Patient reports having 3 small and hard stools this AM. OBJECTIVE Last Vital Signs Temp 98.1 F 09/29/18 11:51 Pulse 80 09/29/18 11:51 Resp 16 09/29/18 11:51 BP 122/49 09/29/18 11:51 Pulse Ox 96 09/29/18 11:51 Height 5 ft 6 in Weight 115 lb GEN: awake, alert, NAD HEENT: NGT in place with bilious fluid in reservoir, MMM, anicteric NECK: no JVD, LAD CV: RRR, mrg PULM: CTAB, no wheezing or crackles ABD: soft, NT/ND, mild tympany in lower abdomen, hypoactive BS, no rebound or guarding EXT: no cce NEURO: nonfocal LABS 09/28/18 09/28/18 00:05 00:05 WBC 9.22 Hgb 12.4 Plt Count 319 Sodium 139 Potassium 3.4 L Chloride 96 L Carbon Dioxide 27 BUN 22 D Creatinine 0.6 Total Bilirubin 0.70 AST 22 ALT 9 L Alkaline Phosphatase 109 H Total Protein 5.6 L Albumin 2.5 L A/P: Ms. Kristen Greenwood is a 83 year old woman admitted with small bowel obstruction vs ileus s/p NGT decompression. She is improving clinically slowly. Labs improved from prior. She had some mild abdominal discomfort with clamping NGT overnight. Abdominal exam is benign. ABD films today shows interval improvement. Small BMs today. Surgery following, apprec recs #SBO vs ileus: abdomen benign, NGT to LIWS; on IVFs, Clinimix, antiemetics prn; analgesics prn #Constipation: on dulcolax BID #GI ppx: on PPI #Leukocytosis: resolved Will follow with you
--- NOTE | 2018-09-29 16:12 | PROGRESS NOTE ---
DATE: 09/29/2018 SUBJECTIVE: Ms. Greenwood is feeling better. Her abdomen seems softer. She is passing gas and has passed some bowel. OBJECTIVE: Vital signs: Temp 98.5 degrees, pulse 85, respirations 16, blood pressure 119/54. HEENT: Her pupils are equal. Neck: No distended neck veins. Lungs: Clear in all lung johnson. Cardiovascular: Regular rhythm and rate without murmur or S3. Abdomen: Softer. Positive bowel sounds. Urine output 2500 mL. ASSESSMENT AND PLAN: 1. Admitted with small bowel obstruction versus ileus, status post NGT compression, improving clinically. NG tube is out. Clamped the NG tube overnight and abdomen seems soft and small bowel movements today, so it seems like we are heading in the right direction. 2. Status post hip fracture and repair. She seems to be doing well from that standpoint. Continue with what physical therapy we can do. 3. Constipation. She is on Dulcolax suppositories. 4. Review of her orders. I do not see any change. cc: Bradley Boyd MD
--- NOTE | 2018-09-29 16:21 | PROGRESS NOTE ---
DATE: 09/28/2018 SUBJECTIVE: She was uncomfortable. She was concerned. Her bowels have not moved. NG tube still in place. I think the plan is to try and clamp the NG tube tonight, and then see if we can remove it though it does appear that clinically she is a little better. Her abdomen looks a little better. OBJECTIVE: Temperature 98.1 degrees, pulse 69, respirations 18, and blood pressure 130/48. HEENT: Pupils are equal and round. Lungs: Clear in all lung johnson. Cardiovascular: Regular rhythm and rate without murmurs or S3. Abdomen: Mildly distended. There were positive bowel sounds. She has passed some gas. ASSESSMENT/PLAN: 1. Small-bowel obstruction and constipation. Continue NG tube. Plan to clamp it off and see if we can remove it tomorrow. She seems to be improving. 2. Fractured hip with open reduction and internal fixation over 2 weeks ago. Continue physical therapy as able. cc: Bradley Boyd MD
[2018-09-29] MEDS: MILK OF MAGNESIA PO PRN (20:25)
[2018-09-30] MEDS: LR 1,000 ML IV SCH ×4 (00:32→10:38)
--- NOTE | 2018-09-30 06:36 | GENERAL SURGERY PROGRESS NOTE ---
DATE: 09/30/2018 SUBJECTIVE: Patient seems to be feeling a little bit better. She has had some bowel movements. Her abdominal film yesterday showed improvement. OBJECTIVE: Vital Signs: Patient is currently afebrile. Her vital signs stable. General: No acute distress. HEENT: Normocephalic, atraumatic. Pupils equal, round, reactive to light. Mucous membranes moist. Oropharynx benign. Neck: Supple. Trachea midline. Cardiovascular: Regular rate and rhythm. Lungs: Grossly clear. Abdomen: Soft, nondistended. No real tenderness to palpation. Bowel sounds auscultated. Extremities: Moves all extremities. Neurologic: Grossly intact. Skin: No signs of jaundice. Vascular: All extremities perfused. LABORATORY: None this morning as of yet. Abdominal film reviewed from yesterday. It shows some improvement. ASSESSMENT AND PLAN: An 83-year-old female with possible small bowel obstruction versus ileus. Obstruction versus ileus. At this time, I think she is making some improvement. We will clamp her nasogastric tube but keep it in place given the fact that she had nausea with the last time of removing it. We will start her on Ensure clears and clear liquid diet and see how she does. If she develops any nausea, we will unclamp the NG tube. cc: MD Bradley Garner MD
[2018-09-30] MEDS: DULCOLAX PR SCH ×2 (08:26→21:25)
--- NOTE | 2018-09-30 10:22 | GASTROENTEROLOGY PROGRESS NOTE ---
DATE: 09/30/2018 SUBJECTIVE: Resting in bed. She had small bowel movements on 09/29/2018; they were hard. She has not passed any gas today. She is drinking Gatorade today. PHYSICAL EXAMINATION: Vital Signs: Temperature 97.7 degrees, pulse rate of 74, respiratory rate 16, blood pressure 122/55, satting 97% on room air. Body weight 115 pounds. BMI 18.6 kg/m2. General appearance: He is moderately malnourished, lying in bed in no acute distress. HEENT: An NG tube was noted. No pallor. No icterus. Neck: Supple. Abdomen: Protuberant. Mild periumbilical discomfort. No guarding or rebound. Extremities: No cyanosis, clubbing, edema. Neurologic: Neuro-awan, she is alert, awake, oriented. LABS: Hemoglobin and hematocrit is 12.4 and 39.3, white count of 9.2, platelet count of 319. Sodium 139, potassium 3.4, chloride 96, bicarbonate 27, anion gap 16. BUN of 22, creatinine 0.6, glucose of 80, calcium is 8.4. Total bilirubin is 0.7, AST 22, ALT 9, alkaline phosphatase is 109. Total protein 5.6, albumin of 2.5. Urine culture showed Enterococcus faecalis group D. IMPRESSION AND PLAN: 1. Small bowel obstruction versus ileus. She is on nasogastric tube intermittent suction; currently the tube is clamped and she is drinking liquids. We will continue to follow closely. Surgery is on board. 2. Malnutrition. She is being started on Ensure Clear for now, but if she continues to be on nothing by mouth for a long duration, you may have to start her on Clinimix. 3. Constipation. She has is on Dulcolax rectal twice daily. Will start a trial on MiraLAX once a day and evaluate the response. If she becomes nauseous or abdominal distention worsens, then we can discontinue the MiraLAX and connect the nasogastric tube back to suction. 4. Gastrointestinal prophylaxis with proton pump inhibitor. 5. Fractured hip with open reduction internal fixation two weeks ago. The above plan discussed with the patient and her son at bedside. All questions answered. Please call us with any further questions. cc: MD Bradley Baxter MD MTDD
[2018-09-30] MEDS: MIRALAX PO SCH (10:38)
[2018-09-30] MEDS: CLINIMIX E 4.25%-5% SOLUTION 1,000 ML IV SCH (10:56)
[2018-09-30] MEDS: PROTONIX IV SCH (11:28)
--- NOTE | 2018-09-30 17:38 | PROGRESS NOTE ---
DATE: 09/30/2018 SUBJECTIVE: Ms Greenwood is feeling a little better. NG tube is back in place. She is swallowing and tolerating liquids. OBJECTIVE: Vital signs: Temp 98.8 degrees, pulse 70, respirations 18, blood pressure 135/55. HEENT: Pupils are equal. Neck: No distended neck veins. Lungs: Clear in all lung johnson. Cardiovascular: Regular rhythm and rate without murmur or S3. Abdomen: Soft. Skin: Warm and dry. ASSESSMENT AND PLAN: 1. Small bowel obstruction versus ileus. She is on nasogastric tube intermittent suction. Currently tube is clamped and they are letting her drink liquids. 2. Apparently she has had some Ensure and getting a little more liquids down for nutrition. 3. Constipation. Continue Dulcolax suppositories rectally twice a day, MiraLAX once a day, and if she becomes nauseated and abdominal distention worsens, can discontinue the MiraLAX and connect the nasogastric tube back to suction. 4. Continue gastrointestinal prophylaxis. 5. She had a fractured hip with open reduction internal fixation 3 weeks ago. Continue physical therapy. 6. Review of her orders. I do not see any change. She is on Clinimix 70 mg a day, lactated Ringer solution 60 mL IV daily, MiraLAX 17 g a day, Protonix 40 mg IV q.24 hours. cc: Bradley Boyd MD
[2018-09-30] MEDS: MILK OF MAGNESIA PO PRN (21:25)
[2018-10-01] MEDS: CLINIMIX E 4.25%-5% SOLUTION 1,000 ML IV SCH ×2 (01:53→18:47)
[2018-10-01] MEDS: ZOFRAN IV PRN ×2 (02:11→22:41)
[2018-10-01] MEDS: DEMEROL IV PRN (02:11)
[2018-10-01] MEDS: LR 1,000 ML IV SCH ×2 (04:36→22:44)
--- NOTE | 2018-10-01 06:09 | GENERAL SURGERY PROGRESS NOTE ---
DATE: 10/01/2018 SUBJECTIVE: Patient doing okay this morning. Discussed with the nurse she did have an episode of vomiting when they connected her tube to suction again. It sounds like this was after she had a bowel movement. Otherwise, she is doing about the same if not a little bit better. OBJECTIVE: Vital Signs: Patient is currently afebrile. Her vital signs are stable. General: No acute distress. HEENT: Normocephalic, atraumatic. Pupils equal, round, reactive to light. Mucous membranes moist. Oropharynx benign. Neck: Supple. Trachea midline. Cardiovascular: Regular rate and rhythm. Lungs: Grossly clear. Abdomen: Soft, nondistended, nontender at this time. Bowel sounds faintly auscultated. Extremities: Moves all extremities. Neurologic: Grossly intact. Skin: No signs of jaundice. Vascular: All extremities perfused. LABORATORY: None this morning as of yet. ASSESSMENT AND PLAN: An 83-year-old female with likely ileus. 1. Ileus. At this time, continue current treatment. We will clamp her nasogastric tube again, keep her on clear liquids and told her to take everything in moderation. We will get another abdominal film this morning to make sure she continues to improve. She is having bowel movements, so we will hold off on surgery. cc: MD Bradley Garner MD
--- NOTE | 2018-10-01 06:15 | Diag Imaging Result Doc PS360 ---
EXAM: ABDOMEN FLAT/UPRIGHT HISTORY: follow up obstruction TECHNIQUE: Flat and upright abdomen, two views COMPARISON: 09/29/2018 FINDINGS: There continue to be air distended loops of small bowel in the left abdomen with air-fluid levels. There appear to be fewer distended loops of bowel. The nasogastric tube is unchanged. Skin chantel overlie the left pelvis. IMPRESSION: Slight interval improvement Electronically signed by Ferny Ortiz 10/01/2018 6:12 AM
[2018-10-01] MEDS: MIRALAX PO SCH (11:51)
[2018-10-01] MEDS: DULCOLAX PR SCH ×2 (11:51→22:41)
[2018-10-01] MEDS: PROTONIX IV SCH (12:13)
--- NOTE | 2018-10-01 15:04 | PROGRESS NOTE ---
DATE: 10/01/2018 She is feeling a little better. She still has her NG tube in. Abdomen is soft. Temperature 97.8 degrees, pulse 76, respirations 16, blood pressure 132/58. Pupils are equal. Lungs are clear in all lung johnson. Cardiovascular. Regular rate without murmur or S3. Abdomen is soft. Skin is warm and dry. Urine output is 2200 mL. ASSESSMENT AND PLAN: 1. Small bowel obstruction. Nasogastric tube in place. Intermittent suction is needed. 2. Constipation. Give her a Dulcolax twice a day. I think they have tried some milk of magnesia. She has had some stools and the abdomen seems to be a little softer. Abdominal film slight interval improvement. Continue be air, distended loops of small bowel, left abdomen air fluid levels, distended loops of bowel. Nasogastric tube is unchanged. Skin chantel overlie the left pelvis. So will continue present Clinimix 70 mg mL an hour, lactated Ringer 60 mL an hour, she is getting Demerol 25 mg q.6 hours p.r.n., Protonix 40 mg IV q.24 hours, MiraLAX 17 g daily and Dulcolax suppositories b.i.d. cc: Bradley Boyd MD
[2018-10-01] MEDS: MILK OF MAGNESIA PO PRN (22:41)
--- NOTE | 2018-10-01 23:28 | PROVIDER PROGRESS NOTE ---
Progress Note SUBJECTIVE: No acute overnight events. Patient reports having BMx 4-5 this morning. Some mild abdominal discomfort. No rectal bleeding or melena. Tolerating clear intermittently. OBJECTIVE Last Vital Signs Temp 97.4 F L 10/01/18 19:59 Pulse 78 10/01/18 21:07 Resp 16 10/01/18 21:07 BP 104/51 10/01/18 19:59 Pulse Ox 98 10/01/18 21:07 Height 5 ft 6 in Weight 115 lb GEN: awake, alert, NAD HEENT: NGT clapped, anicteric, MMM NECK: no JVD, LAD CV: RRR, mrg PULM: CTAB, no wheezing or crackles ABD: soft, NT/ND, mild tympany in lower abdomen, hypoactive BS, no rebound or guarding EXT: no cce NEURO: nonfocal EXAM: ABDOMEN FLAT/UPRIGHT HISTORY: follow up obstruction TECHNIQUE: Flat and upright abdomen, two views COMPARISON: 09/29/2018 FINDINGS: There continue to be air distended loops of small bowel in the left abdomen with air-fluid levels. There appear to be fewer distended loops of bowel. The nasogastric tube is unchanged. Skin chantel overlie the left pelvis. IMPRESSION: Slight interval improvement A/P: Ms. Kristen Greenwood is a 83 year old woman admitted with small bowel obstruction vs ileus s/p NGT decompression. She had some mild abdominal discomfort with clamping NGT overnight and N/V. Abdominal exam with mild tympany. ABD films today shows interval improvement. Small BMs today. Surgery fo bethany, apprec recs #SBO vs ileus: abdomen benign, NGT to LIWS; on IVFs, Clinimix, antiemetics prn; analgesics prn #Constipation: on dulcolax BID; starting relgan IV 10mg q6h #GI ppx: on PPI Will follow with you
[2018-10-02] MEDS: REGLAN IV SCH ×4 (00:07→16:31)
[2018-10-02] MEDS: ZOFRAN IV PRN ×2 (02:43→07:34)
[2018-10-02] MEDS: DEMEROL IV PRN (07:34)
[2018-10-02] MEDS: MILK OF MAGNESIA PO PRN (07:34)
[2018-10-02] MEDS: DULCOLAX PR SCH ×3 (07:35→20:08)
[2018-10-02] MEDS: MIRALAX PO SCH ×2 (07:35→12:00)
[2018-10-02 10:27] LABS: AGAP 9; ALB/GLOB RATIO 0.9; ALBUMIN 2.4 g/dL (3.5-5.0); ALKALINE PHOSPHATASE 101 U/L (32-104); BUN 23 mg/dL (8-22); CALCIUM 8.1 mg/dL (8.8-10.2); CHLORIDE 96 mmol/L (98-107); COSMO 280; CREATININE 0.6 mg/dL (0.5-0.9); ESTIMATED GFR > 60; GLUCOSE 114 mg/dL (70-104); GOT 21 U/L (10-30); GPT 9 U/L (10-36); SODIUM 138 mmol/L (136-145); TCO2 33 mmol/L (25-35); TOTAL BILIRUBIN 0.36 mg/dL (0.20-1.00); TOTAL PROTEIN 5.1 g/dL (6.3-8.3)
--- NOTE | 2018-10-02 10:34 | PROVIDER PROGRESS NOTE ---
Progress Note SUBJECTIVE: No acute overnight events. Patient had some NBNB emesis this morning and 500ml of gastric fluid was suctioned this AM. She denies CP, SOB. She has some abdominal cramping. She complains of having dizziness and fogginess after receiving demerol this morning. No BM today. OBJECTIVE: Last Vital Signs Temp 97.6 F 10/02/18 07:05 Pulse 82 10/02/18 08:11 Resp 16 10/02/18 07:05 BP 121/61 10/02/18 07:05 Pulse Ox 93 L 10/02/18 08:11 Height 5 ft 6 in Weight 115 lb GEN: awake, alert, NAD HEENT: NGT clapped, anicteric, MMM NECK: no JVD, LAD CV: RRR, mrg PULM: CTAB, no wheezing or crackles ABD: soft, NT/ND, mild tympany in lower abdomen, hypoactive BS, no rebound or guarding EXT: no cce NEURO: nonfocal LABS: CMP and CBC pending IMPRESSION: Slight interval improvement A/P: Ms. Kristen Greenwood is a 83 year old woman admitted with small bowel obstruction vs ileus s/p NGT decompression. She had some mild abdominal discomfort with clamping NGT overnight and N/V requiring suctioning. Abdominal exam with mild tympany. She continues to have symptoms despite conservative therapy although I hope to see some improvement over the next couple of days. Surgery following, apprec recs #SBO vs ileus: abdomen benign, NGT clapped; clear liquids as tolerated; on IVFs, Clinimix, antiemetics prn; minimize analgesics; started on reglan overnight #Constipation: on dulcolax BID; holding MoM; continue miralax #GI ppx: on PPI Will follow with you
[2018-10-02 10:43] LABS: BASO# 0.02 X1000 (0.0-0.2); BASO% 0.2 % (0.0-0.8); EOS# 0.05 X1000 (0.0-0.7); EOS% 0.5 % (0.0-10.0); HEMATOCRIT 35.5 % (37.0-47.0); HEMOGLOBIN 11.6 g/dL (12.0-16.0); IMM GRAN# 0.06 X1000 (0.0-0.04); IMM GRAN% 0.6 % (0.0-0.5); LYMPH# 0.61 X1000 (1.2-3.4); LYMPH% 6.4 % (20.5-51.1); MCH 30.8 PG (27-31); MCHC 32.7 g/dL (33-37); MCV 94.2 FL (81-99); MONO# 0.51 X1000 (0.11-0.59); MONO% 5.4 % (1.7-9.3); NEUT# 8.28 X1000 (1.4-6.5); NEUT% 86.9 % (42.2-75.2); PLT 313 X1000 (130-400); RBC 3.77 XMIL (4.2-5.4); RDW 13.5 % (11.5-14.5); WBC 9.53 X1000 (4.8-10.8)
[2018-10-02] MEDS: CLINIMIX E 4.25%-5% SOLUTION 1,000 ML IV SCH (12:00)
[2018-10-02] MEDS: PROTONIX IV SCH (12:00)
[2018-10-02 12:54] LABS: BANDS 6 % (0-1); LYMPHS 6 % (21-51); MONO 2 % (1-9); SEGS 86 % (42-75)
--- NOTE | 2018-10-02 13:18 | PROGRESS NOTE ---
DATE: 10/02/2018 SUBJECTIVE: She is still having some nausea. NG tube is in place. Abdomen feels about the same. She is having bowel movements. She is passing some gas. Still some mild distention. OBJECTIVE: Vitals: On exam, temperature 97.6 degrees, pulse 84, respirations 16, blood pressure 121/61. Eyes: Pupils are equal and round. Lungs: Clear in all lung johnson. Cardiovascular exam: Regular rhythm and rate without murmur or S3. Abdomen: Soft. Skin: Warm and dry. : Urine output is 3300 mL. ASSESSMENT AND PLAN: 1. Admitted with small bowel obstruction versus ileus, status post nasogastric tube decompression. Still has a nasogastric tube in place. Has some mild abdominal discomfort. She is still getting nausea, hoping she does not have to have surgery, but has been very slow progression. Abdominal exam: There is mild tympany and continues to have symptoms despite conservative therapy. Surgery is following as well as Gastroenterology. 2. Status post hip open reduction internal fixation over 3 weeks ago. cc: Bradley Boyd MD
--- NOTE | 2018-10-02 14:20 | GENERAL SURGERY PROGRESS NOTE ---
DATE: 10/02/2018 SUBJECTIVE: The patient continues to have nausea and intermittent vomiting. She also had her NG tube clamped this morning with about 1500 mL drained. She does not know if she has passed any gas or had a bowel movement. OBJECTIVE: Vital Signs: She is afebrile. Vital signs are stable. General: She is awake, alert, and oriented x3. No acute distress. She is frail appearing. GI: Soft, minimally tender. She has hypoactive bowel sounds. LABORATORY: CBC and metabolic profile reviewed and unremarkable. ASSESSMENT AND PLAN: 83-year-old female with ongoing bowel dysfunction. Differential diagnosis includes ileus, delayed gastric emptying, versus partial small bowel obstruction. She also reports chronic constipation. She is getting MiraLAX. Reglan has been ordered. We will continue with the nasogastric tube and cycle it every 6 hours with clamping and unclamping. If she does not improve over the weekend, then I think a repeat small bowel follow-through versus exploratory laparotomy may be inevitable. cc: MD Bradley Torres MD
[2018-10-02] MEDS: LR 1,000 ML IV SCH (16:23)
[2018-10-03] MEDS: REGLAN IV SCH ×5 (00:04→23:48)
[2018-10-03] MEDS: CLINIMIX E 4.25%-5% SOLUTION 1,000 ML IV SCH ×2 (00:08→14:58)
[2018-10-03] MEDS: MIRALAX PO SCH (10:38)
[2018-10-03] MEDS: LR 1,000 ML IV SCH (10:49)
[2018-10-03] MEDS: DULCOLAX PR SCH ×2 (10:49→23:48)
--- NOTE | 2018-10-03 11:23 | GENERAL SURGERY PROGRESS NOTE ---
DATE: 10/03/2018 SUBJECTIVE: The patient continues to have some mild abdominal pain. No nausea or vomiting. She thinks she might have passed a little flatus, but no bowel movement. OBJECTIVE: Vitals: She is afebrile. Vital signs are stable. General: She is awake, alert, and oriented x4. No acute distress. Gastrointestinal: Soft, nontender, minimally distended. She does have bowel sounds. OUTPUT: NG tube recorded as 600 mL over the last 24 hours. ASSESSMENT AND PLAN: An 83-year-old female with abdominal pain and distention and partial small bowel obstruction versus ileus. We are going to get a small bowel follow-through tomorrow and if that is abnormal or she fails to make progress in the next 24 hours, then Dr. Tapia will likely proceed with exploratory laparotomy early this week. cc: MD Bradley Torres MD
--- NOTE | 2018-10-03 11:32 | PROVIDER PROGRESS NOTE ---
Progress Note SUBJECTIVE: No acute overnight events. Afebrile. Patient had multiple episodes of NBNB emesis yesterday with 1500 mL of fluid suctioned yesterday per RN. No BM. Patient denies any abdominal pain. She has hoarseness. No SOB, CP. OBJECTIVE: Last Vital Signs Temp 98.3 F 10/03/18 07:11 Pulse 85 10/03/18 11:26 Resp 16 10/03/18 11:26 BP 131/59 10/03/18 11:26 Pulse Ox 94 L 10/03/18 11:26 Height 5 ft 6 in Weight 115 lb GEN: awake, alert, NAD HEENT: NGT clapped, anicteric, MMM NECK: no JVD, LAD CV: RRR, mrg PULM: CTAB, no wheezing or crackles ABD: soft, NT, minimal distension, mild tympany in lower abdomen, hypoactive BS, no rebound or guarding EXT: no cce NEURO: nonfocal LABS: 09/28/18 10/02/18 10/02/18 00:05 09:42 09:42 WBC 9.53 Hgb 11.6 L Plt Count 319 313 Sodium 138 Potassium 4.0 Chloride 96 L Anion Gap 9 BUN 23 H Creatinine 0.6 Total Bilirubin 0.36 AST 21 ALT 9 L Alkaline Phosphatase 101 Total Protein 5.1 L Albumin 2.4 L IMAGING: none A/P: Ms. Kristen Greenwood is a 83 year old woman admitted with small bowel obstruction vs ileus. She continues to require NGT decompression with high output. Abdominal exam with mild tympany. Leukocytosis resolved. Chemistries stable. Surgery following, apprec recs #SBO vs ileus: abdomen benign, - will obtain repeat KUB today - continue NGT to LIWS - will dial back clears to sips of water/ice chips - IVFs, Clinimix - antiemetics prn - minimize analgesics - discussed with surgery this AM - she may ultimately need exlap given failure to improve significantly with supportive measures #Constipation: on dulcolax BID; continue miralax #GI ppx: on PPI Will follow with you
[2018-10-03] MEDS: PROTONIX IV SCH (12:19)
--- NOTE | 2018-10-03 14:46 | Diag Imaging Result Doc PS360 ---
EXAM: KUB ABDOMEN HISTORY: evaluate for constipation or obstruction TECHNIQUE: Abdomen single view COMPARISON: 10/01/2012 FINDINGS: There are multiple dilated small bowel loops on the current exam. A nasogastric tube overlies the stomach. There are skin chantel overlying the left pelvis with surgical clips in the right lower quadrant. IMPRESSION: No interval improvement. Electronically signed by Ferny Ortiz 10/03/2018 2:43 PM
--- NOTE | 2018-10-03 15:08 | PROGRESS NOTE ---
DATE: 10/03/2018 SUBJECTIVE: Ms. Greenwood does feel a little better. The nausea is less. She still has her NG tube in. She feels like her abdomen is a little softer. She has no pedal edema. Remains afebrile. IMAGING: Abdominal x-ray: No interval improvement. Multiple dilated small bowel loops. Nasogastric tube overlies the stomach. ASSESSMENT AND PLAN: Small bowel obstruction versus ileus. Continues to require NG decompression, high output. Abdominal exam with mild bowel sounds. Her leukocytosis has resolved. Abdomen appears benign. Abdominal x-ray has not shown any real change. I think we will continue NG tube to low intermittent wall suction and keep on clear liquids but just sips of water and ice chips. Continue Clinimix. I think they may do another study in the morning, small bowel follow-through tomorrow and see where we are. cc: Bradley Boyd MD
[2018-10-04] MEDS: REGLAN IV SCH ×3 (05:37→18:02)
[2018-10-04] MEDS: CLINIMIX E 4.25%-5% SOLUTION 1,000 ML IV SCH ×2 (05:37→21:41)
[2018-10-04] MEDS: LR 1,000 ML IV SCH (05:37)
--- NOTE | 2018-10-04 07:30 | GENERAL SURGERY PROGRESS NOTE ---
DATE: 10/04/2018 SUBJECTIVE: Reviewed notes from the weekend. Patient still has made no real consistent progress. Films have looked stable without much improvement. She is doing about the same, although I think her spirits are a little bit lower today. Discussed case with the nurse. Appears to be no acute change. OBJECTIVE: Vital Signs: Patient is currently afebrile. Her vital signs stable. General: No acute distress. HEENT: Normocephalic, atraumatic. Pupils equal, round, reactive to light. Mucous membranes moist. Oropharynx benign. Neck: Supple. Trachea midline. Cardiovascular: Regular rate and rhythm. Lungs: Grossly clear. Abdomen: Soft, nondistended. Some very faint bowel sounds auscultated. Extremities: Moves all extremities. Neurologic: Grossly intact. Skin: No signs of jaundice. Vascular: All extremities perfused. LABORATORY DATA: None this morning as of yet. Abdominal film from yesterday reviewed. She has persistent areas of small bowel dilation. ASSESSMENT AND PLAN: An 83-year-old female with persistent ileus versus obstruction. Ileus versus obstruction: At this time, the patient has made no improvement after being in the hospital for almost 2 weeks. We will try to repeat a small bowel series on her to see if we can make any improvement, but there is a high chance that the patient might require exploratory laparotomy since she has failed to make any progress. We will continue to follow with you and follow up the abdominal series. cc: MD Bradlye Garner MD
[2018-10-04] MEDS: DULCOLAX PR SCH ×2 (08:40→21:34)
--- NOTE | 2018-10-04 12:25 | GASTROENTEROLOGY PROGRESS NOTE ---
DATE: 10/04/2018 SUBJECTIVE: The patient is resting in bed. She came back for a small bowel series today. The results are still pending. She denies any nausea or vomiting. She has an NG tube in place. Her last bowel was 10/01/2018. She denies any fevers, rigors, or chills. PHYSICAL EXAMINATION: Vital Signs: Temperature 97.8 degrees, pulse rate of 79, respiratory rate of 16, blood pressure 130/56, saturating 92% on room air. Body weight of 115 pounds. BMI 18.6 kg/m2. General Appearance: Moderately built, moderately nourished. Lying in bed, in no acute distress. HEENT: Mild pallor. No icterus. NG tube in place. Neck: Supple. Abdomen: Softer. No guarding or rebound. Nontender. Extremities: No cyanosis, clubbing. Neurologic: She is alert, awake, and oriented x3. LABS: Hemoglobin and hematocrit are 11.7 and 35.4, white count of 9.53, platelet count of 313,000. Sodium of 132, potassium 4, chloride 96, bicarb of 30, anion gap 9, BUN of 23, creatinine 0.6, glucose of 114, calcium is 8.1. Total bilirubin is 0.36, AST 21, ALT 9, alkaline phosphatase 101, total protein 5.2, albumin of 2.4. Urine culture showing Enterococcus faecalis, group D. IMPRESSION AND PLAN: 1. Small bowel obstruction versus ileus. She had a barium small bowel series today. The results are pending. We will follow the results. Continue nasogastric tube suction to low intermittent wall suction. Continue intravenous fluids and intravenous Clinimix. She will continue on antiemetics as needed. 2. Constipation. Continue Dulcolax twice a day and continue MiraLAX. 3. Gastrointestinal prophylaxis. Proton pump inhibitors. 4. General surgery is following. 5. She is on Reglan 10 mg intravenous every 6 hours. We will hold Reglan for any side effects like tardive dyskinesia. 6. The above plan of care was discussed with the patient and also the patient's son. All questions were answered. Please call us with any further questions. cc: MD Bradley Baxter MD
[2018-10-04] MEDS: MIRALAX PO SCH (15:21)
[2018-10-04] MEDS: PROTONIX IV SCH (15:29)
[2018-10-04] MEDS: SODIUM CHLORIDE 0.9% INJ SCH (15:29)
--- NOTE | 2018-10-04 17:52 | PROGRESS NOTE ---
DATE: 10/04/2018 SUBJECTIVE: Ms. Greenwood feels she may be a little better, a little less nausea. Still has an NG tube in. She is frustrated. OBJECTIVE: Vital Signs: Today, temperature 97.8 degrees, pulse 88, respirations 16, blood pressure 134/59. HEENT: Pupils are equal and round. Lungs: Clear in all lung johnson. Cardiovascular Exam: Regular rhythm and rate without murmur or S3. Urine output is 2800 mL. ASSESSMENT AND PLAN: 1. Small bowel obstruction versus ileus. He has had a barium small bowel series today. Dr. Bernal and Dr. Tapia are following. She continues NG tube suction, low intermittent wall suction. Continues IV fluids and IV Clinimix. Her abdominal x-ray from yesterday showed no interval improvement. There are multiple dilated small bowel loops. NG tube overlies the stomach. Skin chantel overlie the left pelvis. Surgical clips in the right lower quadrant. No real change. At this time, patient has made no real improvement after being in the hospital for 2 weeks and so repeat this small bowel series to see if there is any improvement. There is a possibility she will need to have exploratory laparotomy. I discussed this with the patient as well. 2. Status post hip fracture almost 4 weeks ago now with open reduction internal fixation. 3. Nutrition limited. Continue the Clinimix. I do not see any change. We are giving her MiraLAX 17 g a day. We are giving her Protonix 40 mg IV q.24 hours, lactated Ringer's at 60 mL an hour, given the Demerol for pain, Reglan 10 mg IV q.6 hours, Clinimix is at 70 mL an hour and Dulcolax suppositories b.i.d. cc: Bradley Boyd MD
[2018-10-05] MEDS: REGLAN IV SCH ×5 (00:30→23:14)
[2018-10-05] MEDS: LR 1,000 ML IV SCH ×2 (01:41→15:56)
--- NOTE | 2018-10-05 08:45 | GENERAL SURGERY PROGRESS NOTE ---
DATE: 10/05/2018 SUBJECTIVE: Patient seems to be doing okay. She did have a bowel movement. Small bowel series is still going, not completed at this moment. OBJECTIVE: Vital Signs: Patient is currently afebrile. Her vital signs stable. General: No acute distress. HEENT: Normocephalic, atraumatic. Pupils equal, round, reactive to light. Mucous membranes moist. Oropharynx benign. Neck: Supple. Trachea midline. Cardiovascular: Regular rate and rhythm. Lungs: Grossly clear. Abdomen: Soft, nontender, nondistended. Some bowel sounds auscultated. Extremities: Moves all extremities. Neurologic: Grossly intact. Skin: No signs of jaundice. Vascular: All extremities perfused. LABORATORY: None this morning as of yet. Abdominal film as noted is pending. ASSESSMENT AND PLAN: An 83-year-old with persistent ileus versus obstruction: Ileus versus obstruction. At this time, we will follow up with small-bowel series. She is having some bowel movements which may show that things are moving through. The patient still wants to try to avoid surgery, but she may have to ultimately require one. We will see what the small- bowel series shows. cc: MD Bradley Garner MD
--- NOTE | 2018-10-05 09:40 | Diag Imaging Result Doc PS360 ---
EXAM: SMALL BOWEL SERIES ONLY INDICATION: sbo TECHNIQUE: Oral barium contrast was administered and the bolus was followed through the small bowel at prescribed time intervals as per routine. COMPARISON: Abdominal radiograph dated 10/03/2018 FINDINGS: There are multiple gas distended loops of the jejunum. The contrast bolus traveled through the jejunum up to 12 point and then propagation of the bolus largely halted. After 23 hours, there was still no contrast in the colon. At this point, the study was ended. This would suggest small bowel obstruction. Although the exact point of extravasation is difficult to see, it is probably in the lower mid abdomen or right lower quadrant. No abnormal contrast extravasation is identified. No mucosal irregularity is appreciated. IMPRESSION: Distended loops of small bowel with no contrast in the colon after 23 hours suggesting likely obstruction, probably in the lower midabdomen or right lower quadrant. Electronically signed by Ki Antonio 10/05/2018 9:37 AM
[2018-10-05] MEDS: MIRALAX PO SCH ×2 (09:50→15:53)
[2018-10-05] MEDS: DULCOLAX PR SCH ×2 (09:52→21:57)
[2018-10-05] MEDS: PROTONIX IV SCH (11:43)
--- NOTE | 2018-10-05 12:54 | GENERAL SURGERY PROGRESS NOTE ---
DATE: 10/05/2018 SUBJECTIVE: Reviewed small-bowel series. After 24 hours, essentially has not made it to the colon. We have been watching her for 2 weeks without any improvement I think at this point we are going to have to consider exploratory laparotomy. Discussed with her the risks, benefits, alternatives. We will have her scheduled for tomorrow afternoon. cc: MD Bradley Garner MD
--- NOTE | 2018-10-05 13:40 | PROGRESS NOTE ---
DATE: 10/05/2018 SUBJECTIVE: Ms. Greenwood had a bowel movement and so she got some rest last night. She slept so I think she feels a little better. No nausea this morning. OBJECTIVE: Temperature 98.1 degrees, pulse 80, respirations 16, blood pressure 123/103. Pupils are equal. Lungs are clear in all lung johnson. Cardiovascular Examination: Regular rhythm and rate without murmur or S3. Abdomen is soft. Skin is warm and dry. Urine output is 1700 mL. ASSESSMENT AND PLAN: 1. Reviewed small bowel series. The dye has not made it to the colon but she did have a bowel movement yesterday. I have been watching for about 2 weeks without much improvement and so considering exploratory laparotomy. I think she is scheduled for the surgery tomorrow. 2. Status post hip fracture over 4 weeks ago. Aware. Getting some physical therapy. She is walking. 3. Nutrition. She is getting Clinimix. I think the plan is for exploratory surgery. cc: Bradley Boyd MD
[2018-10-05] MEDS: CLINIMIX E 4.25%-5% SOLUTION 1,000 ML IV SCH (15:57)
[2018-10-05] MEDS: DEMEROL IV PRN (16:02)
[2018-10-06] MEDS: ZOFRAN IV PRN (01:29)
[2018-10-06] MEDS: CLINIMIX E 4.25%-5% SOLUTION 1,000 ML IV SCH ×2 (05:12→18:11)
[2018-10-06] MEDS: REGLAN IV SCH ×3 (05:12→18:05)
[2018-10-06] MEDS: LR 1,000 ML IV SCH ×2 (05:16→14:05)
--- NOTE | 2018-10-06 06:11 | GENERAL SURGERY PROGRESS NOTE ---
DATE: 10/06/2018 SUBJECTIVE: The patient is doing about the same. OBJECTIVE: Vital Signs: The patient is currently afebrile. Her vital signs are stable. General: No acute distress. HEENT: Normocephalic and atraumatic. Pupils are equal, round and reactive to light. Mucous membranes are moist. Oropharynx is benign. Neck: Supple. Trachea midline. Cardiovascular: Regular rate and rhythm. Lungs: Grossly clear. Abdomen: Soft, nondistended. Hypoactive bowel sounds. Extremities: Moves all extremities. Neurologic: Grossly intact. Skin: No signs of jaundice. Vascular: All extremities perfused. LABORATORY: None this morning. ASSESSMENT: The patient is an 83-year-old female with ileus versus bowel obstruction. PLAN: Ileus versus bowel obstruction. At this time, as stated previously, small-bowel series did not show contrast making it all the way to the colon. We have been watching her nonoperatively for 2 weeks and she has not had any improvement. I think at this point we just need to plan on surgical intervention. She is on the schedule for today. I discussed with her yesterday the risks, benefits and alternatives of the procedure. We will proceed with exploratory laparotomy. cc: MD Bradley Garner MD
[2018-10-06] MEDS ORDERED: DIPRIVAN 1% ONE (06:35)
[2018-10-06] MEDS ORDERED: SODIUM CHLORIDE 0.9% 10 ML ONE ×2 (06:36→07:01)
[2018-10-06] MEDS ORDERED: XYLOCAINE-MPF 2% ONE (06:36)
[2018-10-06] MEDS ORDERED: QUELICIN (DOSE) ONE (06:36)
[2018-10-06] MEDS ORDERED: NORCURON ONE (06:36)
[2018-10-06] MEDS ORDERED: MARCAINE 0.5% ONE (07:01)
[2018-10-06] MEDS ORDERED: EXPAREL 1.3% ONE (07:01)
[2018-10-06] MEDS ORDERED: ZOFRAN ONE (07:50)
[2018-10-06] MEDS ORDERED: DECADRON ONE (07:50)
[2018-10-06] MEDS ORDERED: OFIRMEV 1000 MG/ISOTONIC SOLN 1,000 MG/100 ML BOTTLE ONE (07:55)
[2018-10-06] MEDS ORDERED: EPHEDRINE ONE (07:58)
[2018-10-06] MEDS ORDERED: MEFOXIN 2 GM/NS 2 GM/50 ML IVPB IV ONE (08:00)
[2018-10-06] MEDS ORDERED: ROBINUL ONE (09:20)
[2018-10-06] MEDS ORDERED: NEOSTIGMINE ONE (09:20)
[2018-10-06 10:01] LABS: URINE SOURCE CATH
[2018-10-06 10:03] LABS: BILIRUBIN URINE NEGATIVE (NEGATIVE); BLOOD URINE NEGATIVE (NEGATIVE); COLOR YELLOW; GLUCOSE URINE NEGATIVE (NEGATIVE); KETONE URINE NEGATIVE (NEGATIVE); LEUKOCYTES URINE NEGATIVE (NEGATIVE); NITRITE URINE NEGATIVE (NEGATIVE); PH URINE 7.5; PROTEIN URINE NEGATIVE (NEGATIVE); TURBIDITY URINE CLEAR (CLEAR); UR EPITHELIAL CELLS <10 /HPF (<10); URINE BACTERIA 1+ /HPF; URINE RBC <10 /HPF (<10); URINE WBC <10 /HPF (<10); UROBILINOGEN URINE NORMAL (NORMAL)
--- NOTE | 2018-10-06 10:06 | OPERATIVE NOTE ---
PROCEDURE DATE: 10/06/2018 PREOPERATIVE DIAGNOSIS: Small-bowel obstruction. POSTOPERATIVE DIAGNOSIS: Small-bowel obstruction with internal hernia with perforation and abscess. PROCEDURES: 1. Exploratory laparotomy. 2. Small-bowel resection. 3. Extensive lysis of adhesions. SURGEON: Chris Tapia MD. DRAWING IN MACHINE TENDER HELPER: Dr. Stroud. Dr. Stroud assisted with the small-bowel resection. His presence was crucial for the completion of the case. ANESTHESIA: General endotracheal. INTRAOPERATIVE FINDINGS: Internal hernia with loop causing stricture and perforation in the small bowel in the right lower quadrant. COMPLICATIONS: None at the time of this dictation. ESTIMATED BLOOD LOSS: 100 mL. SPECIMENS: Small bowel. DRAINS: 19 round drain. BRIEF HISTORY: 83-year-old female who was admitted almost 2 weeks ago with an ileus versus obstruction. We tried for 2 weeks to do nonoperative management and did a small-bowel follow- through, which did not show any progression. It was felt that she needed exploratory laparotomy. The risks, benefits, and alternatives were discussed. All questions answered. DESCRIPTION OF PROCEDURE: After informed consent was obtained, patient brought over to the operative theater, transferred to the operative table, placed supine position. General endotracheal anesthesia was then performed without complication. A formal time-out was then performed confirming patient, date, procedure. All were in agreement. At that time, attention was given the abdomen. A standard midline incision was made to enter into the abdomen. Once we entered the abdomen, we found a dense amount of adhesions and dilated small bowel. Through extensive lysis of adhesions we were able to identify the area of likely obstruction which was in the right lower quadrant. It was involved with an internal hernia with a significant stricture in the area of the abscess and perforation. We had to bluntly dissect this area off the side wall while preserving the ureter and the sigmoid colon, brought up, eviscerated it. It needed to be resected. We used a BIRGIT stapler to resect this area and perform a [id number] functional end-to- end small bowel anastomosis with good results. We did identify the remainder of the small bowel and ran it, did not find any other pathology. Again, this seemed to be the likely source of the obstruction. We did get some contamination in the field with the abscess and the perforation, but we were able to irrigate it out copiously until the suction fluid was clear. Given this and the close proximity to the sigmoid colon, we elected to leave a drain from the patient's right lower quadrant tunneled down to the pelvis. We secured it in place. We again irrigated the abdomen and then closed it with a running loop PDS, started at either site. The patient tolerated procedure well, transferred back to recovery room in stable condition. We did confirmed the NG tube was in place. cc: MD Bradley Garner MD
[2018-10-06] MEDS: DILAUDID ONE ×3 (10:28→10:53)
[2018-10-06] MEDS: DEMEROL IV PRN (14:03)
[2018-10-06] MEDS: DULCOLAX PR SCH ×2 (14:05→20:19)
[2018-10-06] MEDS: MIRALAX PO SCH (14:05)
[2018-10-06] MEDS: PROTONIX IV SCH (14:09)
[2018-10-06] MEDS: MEFOXIN 2 GM/NS 2 GM/50 ML IVPB IV SCH ×2 (14:09→20:15)
--- NOTE | 2018-10-06 17:10 | PROGRESS NOTE ---
DATE: 10/06/2018 SUBJECTIVE: Ms. Greenwood underwent exploratory surgery. They found a small abscess in her small bowel with some ischemic bowel there, so a small bowel resection. OBJECTIVE: Temp 97.7 degrees, pulse 69, respirations 13. Blood pressure has been running in the 120s to 130s, postop is around 80s but did come back up to 100. Given her some fluid.Lungs: Clear in all lung johnson. Cardiovascular: Regular rhythm and rate without murmur or S3. Abdomen: Absent bowel sounds. LAB: Will repeat some more lab in the morning, electrolytes. ASSESSMENT AND PLAN: 1. Small bowel obstruction and appeared to be partial ileus from the abscess and stricture in small bowel, so this should really help. We will continue NG tube and watch her fluid level and electrolytes. 2. Status post hip fracture, open reduction internal fixation 4 weeks ago. 3. Nutrition. She has been on Clinimix. Advance her diet as we are able. 4. In looking over her medications. We got her on cefoxitin 2 g IV q.6 hours, Clinimix at 70 mL an hour, lactated Ringer at 60 mL an hour. cc: Bradley Boyd MD
[2018-10-07] MEDS: LR 1,000 ML IV SCH ×3 (00:25→19:51)
[2018-10-07] MEDS: CLINIMIX E 4.25%-5% SOLUTION 1,000 ML IV SCH ×3 (00:25→18:12)
[2018-10-07] MEDS: REGLAN IV SCH ×4 (00:26→18:15)
[2018-10-07] MEDS: MEFOXIN 2 GM/NS 2 GM/50 ML IVPB IV SCH ×4 (01:50→19:51)
[2018-10-07] MEDS: DEMEROL IV PRN ×2 (02:34→08:13)
--- NOTE | 2018-10-07 06:26 | GENERAL SURGERY PROGRESS NOTE ---
DATE: 10/07/2018 SUBJECTIVE: Patient doing okay. She is having some soreness. OBJECTIVE: Vital signs: Patient is currently temperature 97.9 degrees, pulse 96, blood pressure 100/51. General: No acute distress. Cardiovascular: Regular rate and rhythm. Lungs: Grossly clear. Abdomen: Soft, appropriately tender. FIONA drain in place and 505 mL recorded out, looks serosanguineous. LABS: None this morning as of yet. ASSESSMENT AND PLAN: An 83-year-old female status post exploratory laparotomy with small-bowel resection for bowel obstruction. Postoperative state. At this time, she is currently postoperative day number 1. We will await return of bowel function. Continue supportive care. Pain control. She has sequential compression devises ordered. She has not been very mobile, so we will order heparin subcu. cc: MD Bradley Garner MD
[2018-10-07] MEDS: MIRALAX PO SCH (08:24)
[2018-10-07] MEDS: DULCOLAX PR SCH ×2 (08:24→22:59)
--- NOTE | 2018-10-07 10:45 | PROGRESS NOTE ---
DATE: 10/07/2018 SUBJECTIVE: Ms Greenwood is hurting quite a bit, but she is awake and alert. NG tube in place. She has a warming blanket on. Blood pressure has been a little low postop. VITAL SIGNS: Temperature 98.6 degrees, pulse 95, respirations 13, blood pressure was 67/48 and then up to 100/50. ASSESSMENT AND PLAN: 1. Status post exploratory laparotomy, small bowel resection for bowel obstruction, small abscess, a little bit of ischemia there. This is postoperative day 1. 2. Blood pressure is a little low. Suspect she is third-spacing some. Continue present fluid rate. Appears to be perfusing well. 3. Status post hip fracture 4 weeks ago. She is doing well from that standpoint, walking with rehabilitation. 4. On Clinimix for nutrition. As her postoperative ileus improves, will be able to advance her diet. Right now she is on cefoxitin. She is getting 2 grams intravenous every 6 hours. Continue her other medications. cc: Bradley Boyd MD
[2018-10-07] MEDS: PROTONIX IV SCH (12:24)
[2018-10-07] MEDS: HEPARIN SUBQ SCH ×2 (12:24→22:59)
[2018-10-08] MEDS: REGLAN IV SCH ×4 (00:12→18:31)
[2018-10-08] MEDS: MEFOXIN 2 GM/NS 2 GM/50 ML IVPB IV SCH ×3 (02:00→18:30)
[2018-10-08] MEDS: HEPARIN SUBQ SCH ×2 (06:06→14:05)
[2018-10-08] MEDS: CLINIMIX E 4.25%-5% SOLUTION 1,000 ML IV SCH ×3 (08:35→23:55)
[2018-10-08] MEDS: MIRALAX PO SCH (08:35)
[2018-10-08] MEDS: DULCOLAX PR SCH ×2 (08:36→23:53)
--- NOTE | 2018-10-08 09:37 | PROGRESS NOTE ---
DATE: 10/08/2018 SUBJECTIVE: Ms. Greenwood is feeling a little better. NG tube still in place but is not to suction right now. They started her on full liquids. OBJECTIVE: Vital Signs: She remains afebrile, temperature 97.4 degrees, pulse 82, respirations 15, blood pressure 112/50 46. HEENT: Pupils are equal and round. Lungs: Clear in all lung johnson. Cardiovascular: Regular rhythm and rate without murmur or S3. LABORATORY DATA: Urine output is 700 mL. ASSESSMENT AND PLAN: 1. Status post exploratory laparotomy, small bowel resection, doing well. Seems like her bowel motility is returning. NG tube still in place. 2. Status post hip fracture over 4 weeks ago and will resume physical therapy when we can. 3. Nutrition on Clinimix. Hopefully, can advance her diet as her bowels are doing better. She is on cefoxitin 2 g IV q.6 hours and on MiraLAX 17 g a day, Clinimix at 70 mL an hour. 4. Physical therapy. We will resume and see if we can sit her up in a chair. See how we progress. cc: Bradley Boyd MD
--- NOTE | 2018-10-08 10:13 | GENERAL SURGERY PROGRESS NOTE ---
DATE: 10/08/2018 SUBJECTIVE: Patient seems to be doing about the same. Discussed with nursing staff when I put her NG tube back to suction, barely anything came out. The patient is unsure if she passed any gas. OBJECTIVE: Vital Signs: Patient is currently afebrile. Her vital signs are stable. General exam: No acute distress. Cardiovascular: Regular rate and rhythm. Lungs: Some coarse sounds noted. Abdomen: Soft, appropriately tender. Some faint bowel sounds auscultated. ASSESSMENT AND PLAN: An 83-year-old female, currently postoperative day #2 from exploratory laparotomy and small bowel resection for obstruction. 1. Postoperative state: At this time, again patient is postop day. Given the fact she has little output out of her nasogastric tube, we will keep it in its place, but we will start her on clear liquids and see how she does. We did get physical therapy to mobilize the patient. She has had 2 recent surgeries and needs to probably get some mobilization before she deconditions. cc: MD Bradley Garner MD
[2018-10-08] MEDS: LR 1,000 ML IV SCH (12:29)
[2018-10-08] MEDS: PROTONIX IV SCH (12:29)
--- NOTE | 2018-10-08 19:36 | PROVIDER PROGRESS NOTE ---
Progress Note SUBJECTIVE: No acute overnight events. Afebrile. No N/V/F. She is tolerating clears. No BM or flatus. OBJECTIVE: Last Vital Signs Temp 97.7 F 10/08/18 15:47 Pulse 81 10/08/18 15:47 Resp 15 10/08/18 15:47 BP 107/65 10/08/18 15:47 Pulse Ox 99 10/08/18 15:47 Height 5 ft 6 in Weight 115 lb GEN: awake, alert, NAD, sitting in chair HEENT: anicteric, MMM NECK: no JVD, LAD CV: RRR, mrg PULM: CTAB, no wheezing or crackles ABD: mild incision with dressing c/d/i, ND, hypoactive BS, mild TTP throughout, FIONA drain with serosanginous fluid in lower abdomen EXT: no cce NEURO: nonfocal PROCEDURE DATE: 10/06/2018 PREOPERATIVE DIAGNOSIS: Small-bowel obstruction. POSTOPERATIVE DIAGNOSIS: Small-bowel obstruction with internal hernia with perforation and abscess. PROCEDURES: 1. Exploratory laparotomy. 2. Small-bowel resection. 3. Extensive lysis of adhesions. A/P: Ms. Kristen Greenwood is a 83 year old woman admitted with SBO with internal hernia with perforation and abscess s/p SB resection and lysis of adhesions. No acute overnight events. Afebrile. Patient tolerating clears. No BM or flatus. She is receiving bowel regimen. On abx with cefoxitin. #SBO - continue post-operative mgmt as per surgery - analgesics and antiemetics prn - clear liquid diet as tolerated - PT, OOB, mobilization - continue miralax - stopped reglan - will check CMP #Intra-abdominal abscess - on cefoxitin - will obtain CBC #GI ppx: on PPI Will follow with you
[2018-10-08] MEDS: DEMEROL IV PRN (19:48)
[2018-10-08 22:27] LABS: BASO# 0.01 X1000 (0.0-0.2); BASO% 0.1 % (0.0-0.8); EOS# 0.04 X1000 (0.0-0.7); EOS% 0.3 % (0.0-10.0); HEMOGLOBIN 8.3 g/dL (12.0-16.0); IMM GRAN# 0.06 X1000 (0.0-0.04); IMM GRAN% 0.5 % (0.0-0.5); LYMPH# 0.41 X1000 (1.2-3.4); LYMPH% 3.4 % (20.5-51.1); MCH 30.4 PG (27-31); MCHC 33.2 g/dL (33-37); MCV 91.6 FL (81-99); MONO# 0.39 X1000 (0.11-0.59); MONO% 3.3 % (1.7-9.3); MPV 10.3 FL (7.4-10.4); NEUT# 11.09 X1000 (1.4-6.5); NEUT% 92.4 % (42.2-75.2); PLT 165 X1000 (130-400); RBC 2.73 XMIL (4.2-5.4); RDW 13.7 % (11.5-14.5)
[2018-10-08 22:43] LABS: BANDS 2 % (0-1); HYPOCHROM 1+; LYMPHS 2 % (21-51); MONO 3 % (1-9); SEGS 93 % (42-75)
[2018-10-08 22:49] LABS: ALB/GLOB RATIO 0.7; ALBUMIN 1.9 g/dL (3.5-5.0); CALCIUM 8.1 mg/dL (8.8-10.2); POTASSIUM 5.8 mmol/L (3.5-5.1); TOTAL BILIRUBIN 0.37 mg/dL (0.20-1.00); TOTAL PROTEIN 4.6 g/dL (6.3-8.3)
[2018-10-09] MEDS: HEPARIN SUBQ SCH ×4 (00:19→20:20)
[2018-10-09] MEDS: LR 1,000 ML IV SCH (04:32)
[2018-10-09] MEDS: MEFOXIN 2 GM/NS 2 GM/50 ML IVPB IV SCH ×5 (04:32→20:20)
[2018-10-09] MEDS: DULCOLAX PR SCH ×2 (07:42→20:46)
[2018-10-09] MEDS: MIRALAX PO SCH (08:05)
[2018-10-09] MEDS: DEMEROL IV PRN ×2 (09:00→16:59)
--- NOTE | 2018-10-09 09:00 | PROGRESS NOTE ---
DATE: 10/09/2018 SUBJECTIVE: Ms Greenwood has a little bit of nausea when she tries to drink her MiraLAX. Otherwise doing better. NG tube is in place. Abdomen is soft. I do hear bowel sounds in all quadrants of the abdomen. She has not passed gas or a bowel movement yet. OBJECTIVE: Temperature is 98.3 degrees, pulse 78, respirations 16, blood pressure 127/55. Pupils are equal and round. Lungs are clear in all lung johnson. Cardiovascular: Regular rhythm and rate without murmur or S3. Abdomen is soft. As I stated, bowel sounds heard. No pedal edema. LABORATORY DATA: This morning white count 12,000, hematocrit 25, hemoglobin 8.3, platelet count 165,000. Sodium 131, potassium 5.8, chloride 99, BUN 45, creatinine 1.0. ASSESSMENT AND PLAN: 1. Small bowel obstruction with internal hernia. She had an abscess resection and lysis of adhesions, and she seems to be improving. No bowel movement or flatus yet. Continues present bowel regimen. Get her up in a chair. 2. She had broken her hip 4 weeks ago and has done fairly well up to this point. Rehabilitation: We will re-initiate her ambulation and physical therapy on Thursday hopefully. 3. Review of her orders. I do not see any change. She is getting polyethylene glycol 17 g IV daily, she is on cefoxitin 2 g IV q.6 h., and she is getting Clinimix 70 mL every hour, and lactated Ringer at 60 mL an hour. cc: Bradley Boyd MD
--- NOTE | 2018-10-09 11:49 | GENERAL SURGERY PROGRESS NOTE ---
DATE: 10/09/2018 SUBJECTIVE: The patient seems to be doing about the same. She has not passed any gas. She felt a little bit sick yesterday, but otherwise has been doing okay. OBJECTIVE: Vital Signs: Patient is currently afebrile. Her vital signs stable. General: No acute distress. Cardiovascular: Regular rate and rhythm. Lungs: Grossly clear. Abdomen: Soft, nondistended. Hypoactive bowel sounds. Incision with dressing in place. FIONA drain with minimal serosanguineous output. ASSESSMENT AND PLAN: An 83-year-old female, currently postoperative day #3 from exploratory laparotomy with small bowel resection. Postoperative state. At this time, we will continue to monitor. I suspect that she is going to have a prolonged postoperative ileus. She is on Clinimix. We will just keep an eye on her. cc: MD Bradley Garner MD MTDD
[2018-10-09] MEDS: CLINIMIX E 4.25%-5% SOLUTION 1,000 ML IV SCH ×2 (13:02→14:20)
[2018-10-09] MEDS: SODIUM CHLORIDE 0.9% INJ SCH (13:06)
[2018-10-09] MEDS: PROTONIX IV SCH (13:06)
[2018-10-10] MEDS: MEFOXIN 2 GM/NS 2 GM/50 ML IVPB IV SCH ×4 (03:29→21:51)
[2018-10-10] MEDS: CLINIMIX E 4.25%-5% SOLUTION 1,000 ML IV SCH ×2 (03:30→19:00)
[2018-10-10] MEDS: HEPARIN SUBQ SCH ×3 (05:33→21:51)
--- NOTE | 2018-10-10 07:35 | GENERAL SURGERY PROGRESS NOTE ---
DATE: 10/10/2018 SUBJECTIVE: Patient seems to be doing okay. She has passed some gas. She is feeling better. OBJECTIVE: Vital Signs: The patient is currently afebrile. Her vital signs are stable. General Examination: No acute distress. Cardiovascular: Regular rate and rhythm. Lungs: Grossly clear. Abdomen: Soft, appropriately tender. FIONA drain with serosanguineous output. Some bowel sounds auscultated. ASSESSMENT AND PLAN: An 83-year-old female, currently postoperative day #4 from exploratory laparotomy and small bowel obstruction. Postoperative state. At this time, the patient seems to be doing well. We will advance her to a full liquid diet and clamp her tube. We will see how she does. cc: MD Bradley Garner MD
--- NOTE | 2018-10-10 08:40 | PROGRESS NOTE ---
DATE: 10/10/2018 SUBJECTIVE: Ms. Greenwood has taken down some full liquids and she is not having nausea at this present time. She has passed some gas. OBJECTIVE: Temperature 98.0 degrees, pulse 80, respirations 16, blood pressure 129/63. Pupils are equal and round. Lungs are clear in all lung johnson. Cardiovascular Examination: Regular rhythm and rate without murmur or S3. Abdomen is soft. Skin is warm and dry. Urine output is 2800 mL. ASSESSMENT AND PLAN: Postoperative day 4 from exploratory laparotomy and small-bowel resection. She is on full liquids. Clamping the tube. I am going to take her Hayes out. She is complaining that there is some leakage around the Hayes catheter. We need to get her up and continue to sit her up in a chair. I am going to continue the cefoxitin 2 g intravenous every 6 hours and I think we can probably stop that tomorrow. She is on Clinimix 70 mL an hour, Protonix 40 mg intravenous every 24 hours, and getting Zofran for nausea. We will discontinue the catheter and continue to sit her up in a chair. cc: Bradley Boyd MD
[2018-10-10] MEDS: DULCOLAX PR SCH (09:38)
[2018-10-10] MEDS: MIRALAX PO SCH (09:38)
[2018-10-10] MEDS: DEMEROL IV PRN (10:40)
[2018-10-10] MEDS: PROTONIX IV SCH (10:40)
[2018-10-10] MEDS: LR 1,000 ML IV SCH (18:05)
[2018-10-11] MEDS: DULCOLAX PR SCH ×3 (04:25→20:56)
[2018-10-11] MEDS: HEPARIN SUBQ SCH ×3 (04:56→20:56)
[2018-10-11] MEDS: MEFOXIN 2 GM/NS 2 GM/50 ML IVPB IV SCH ×4 (04:56→20:55)
[2018-10-11] MEDS: MIRALAX PO SCH (09:22)
--- NOTE | 2018-10-11 09:33 | GENERAL SURGERY PROGRESS NOTE ---
DATE: 10/11/2018 SUBJECTIVE: Patient seems to be doing okay. She has not had any nausea and essentially had her tube clamped the whole night. She says she does have a taste for food, though. OBJECTIVE: Vital Signs: Patient is currently afebrile. Her vital signs stable. General: No acute distress. Cardiovascular: Regular rate and rhythm. Lungs: Grossly clear. Abdomen: Soft, nondistended, some bowel sounds auscultated. Dressing in place. ASSESSMENT AND PLAN: An 83-year-old female status post exploratory laparotomy and small-bowel resection, currently postoperative day #5. Postoperative state. At this time, patient seems to be doing okay. We will remove her NG tube, keep her on full liquid diet for right now and see how she does. cc: MD Bradley Garner MD
[2018-10-11] MEDS: PROTONIX IV SCH (09:45)
--- NOTE | 2018-10-11 10:03 | PROGRESS NOTE ---
DATE: 10/11/2018 SUBJECTIVE: She has the NG tube out. Her abdomen is sore but she was able to keep down the full liquids she took yesterday. She has not had a bowel movement but she has passed gas and flatus. She remains afebrile. PHYSICAL EXAMINATION: Temperature 97.9 degrees, pulse 78, respirations 16, blood pressure 118/51. Pupils were equal. No distended neck veins. Lungs are clear anterolateral. Cardiovascular Examination: Regular rhythm and rate without murmur or S3. Abdomen is soft and there are positive bowel sounds in all quadrants. No pedal edema. Urine output was about 1400 mL. LABORATORY DATA: Reviewed from the . Hematocrit 25, hemoglobin 8.3, with an MCV of 91. Sodium 131, potassium 5.3, chloride 99, BUN 44, creatinine 1.0. ASSESSMENT/PLAN: 1. Small-bowel obstruction. She had a mechanical obstruction with abscess in the small bowel. Small-bowel resection. Seems to be making good progress. She had an exploratory laparotomy, small-bowel resection. This is postoperative day #5. Increase her activity. They removed the nasogastric tube. She is on a full liquid diet. We will continue that and resume her physical therapy. 2. She had a fractured hip over 4 weeks ago and has done well as far as physical therapy and weightbearing so we will continue her physical therapy. We am going to keep her on her cefoxitin 2 g intravenous every 8 hours for now. She did have a little abscess in that small bowel. cc: Bradley Boyd MD
[2018-10-11] MEDS: LR 1,000 ML IV SCH ×2 (14:08→23:28)
[2018-10-11] MEDS: CLINIMIX E 4.25%-5% SOLUTION 1,000 ML IV SCH ×2 (14:09→23:29)
[2018-10-11] MEDS: DEMEROL IV PRN (21:05)
[2018-10-12] MEDS: MEFOXIN 2 GM/NS 2 GM/50 ML IVPB IV SCH ×2 (03:46→08:49)
[2018-10-12] MEDS: CLINIMIX E 4.25%-5% SOLUTION 1,000 ML IV SCH ×3 (03:48→21:01)
[2018-10-12] MEDS: LR 1,000 ML IV SCH ×3 (03:48→21:01)
[2018-10-12] MEDS: HEPARIN SUBQ SCH ×3 (04:50→20:45)
[2018-10-12] MEDS: ZOFRAN IV PRN ×2 (08:50→22:08)
[2018-10-12] MEDS: MIRALAX PO SCH (08:50)
[2018-10-12] MEDS: DULCOLAX PR SCH ×2 (08:50→20:45)
--- NOTE | 2018-10-12 08:55 | GENERAL SURGERY PROGRESS NOTE ---
DATE: 10/12/2018 SUBJECTIVE: Patient seems to be doing okay. She tolerated her NG tube being removed. OBJECTIVE: Vital Signs: The patient is currently afebrile. Her vital signs are stable. General Examination: No acute distress. Cardiovascular: Regular rate and rhythm. Lungs: Grossly clear. Abdomen: Soft, nondistended. Incision with dressing intact. Bowel sounds auscultated. ASSESSMENT AND PLAN: An 83-year-old female, currently postoperative day #6 from exploratory laparotomy and small-bowel resection. Postoperative state. At this time, the patient seems to be doing okay. She is tolerating her nasogastric tube out. We will put her on a gastrointestinal soft diet and continue to monitor her. cc: MD Bradley Garner MD
--- NOTE | 2018-10-12 10:03 | PROVIDER PROGRESS NOTE ---
Progress Note SUBJECTIVE: NGT discontinued yesterday. No acute overnight events. Patient reports having nausea after trying to eat breakfast this AM. No vomiting. +Lower abdominal pain. No flatus. No bowel movement for a couple of days. No fever, CP, SOB, GERD. OBJECTIVE: Last Vital Signs Temp 97.8 F 10/12/18 08:05 Pulse 77 10/12/18 08:32 Resp 14 10/12/18 08:32 BP 131/49 10/12/18 08:05 Pulse Ox 97 10/12/18 08:32 Height 5 ft 6 in Weight 115 lb GEN: awake, alert, NAD, chronically ill appearing HEENT: anicteric, MMM NECK: no JVD, LAD CV: RRR, mrg PULM: CTAB, no wheezing or crackles ABD: mild incision with dressing c/d/i, ND, hypoactive BS, mild TTP throughout EXT: no cce NEURO: nonfocal A/P: Ms. Kristen Greenwood is a 83 year old woman admitted with SBO with internal hernia with perforation and abscess s/p SB resection and lysis of adhesions on 10/06. She continues to have nausea with difficulty advancing diet. No BM or flatus. She is receiving bowel regimen. On abx with cefoxitin. #SBO - consider repeat CT abdomen and pelvis; defer to surgery team - BMP and CBC ordered - continue post-operative mgmt as per surgery - analgesics and antiemetics prn - GI soft diet as tolerated - on clinimix and IVFs #Nausea: from above; AM labs ordered #Intra-abdominal abscess: afebrile; on cefoxitin as per primary team #GI ppx: on PPI Will follow with you
[2018-10-12] MEDS: PROTONIX IV SCH (10:05)
[2018-10-12] MEDS: DEMEROL IV PRN (10:11)
[2018-10-12 11:02] LABS: BASO# 0.01 X1000 (0.0-0.2); BASO% 0.2 % (0.0-0.8); EOS# 0.04 X1000 (0.0-0.7); EOS% 0.6 % (0.0-10.0); HEMATOCRIT 25.3 % (37.0-47.0); HEMOGLOBIN 8.4 g/dL (12.0-16.0); IMM GRAN# 0.07 X1000 (0.0-0.04); IMM GRAN% 1.1 % (0.0-0.5); LYMPH# 0.61 X1000 (1.2-3.4); LYMPH% 9.5 % (20.5-51.1); MCH 30.2 PG (27-31); MCHC 33.2 g/dL (33-37); MONO# 0.43 X1000 (0.11-0.59); MONO% 6.7 % (1.7-9.3); MPV 10.1 FL (7.4-10.4); NEUT# 5.25 X1000 (1.4-6.5); NEUT% 81.9 % (42.2-75.2); PLT 197 X1000 (130-400); RBC 2.78 XMIL (4.2-5.4); RDW 13.8 % (11.5-14.5); WBC 6.41 X1000 (4.8-10.8)
[2018-10-12 12:06] LABS: AGAP 7; BUN 20 mg/dL (8-22); CHLORIDE 97 mmol/L (98-107); COSMO 263; CREATININE 0.7 mg/dL (0.5-0.9); ESTIMATED GFR > 60; GLUCOSE 117 mg/dL (70-104); POTASSIUM 4.7 mmol/L (3.5-5.1); SODIUM 129 mmol/L (136-145); TCO2 25 mmol/L (25-35)
--- NOTE | 2018-10-12 13:37 | PROGRESS NOTE ---
DATE: 10/12/2018 SUBJECTIVE: Ms Greenwood just ate a couple bites of food. She has still got nausea. Her abdomen is soft. Positive bowel sounds. She has had some stools and passing flatus. I think she is discouraged because she did not have much appetite. OBJECTIVE: Vital Signs: Temperature 97.8 degrees, pulse 70, respirations 14, blood pressure 131/49. Eyes: Pupils are equal and round. Lungs: Clear in all lung johnson. Cardiovascular exam: Regular rhythm and rate without murmur or S3. Abdomen: Soft. Skin: Warm and dry. ASSESSMENT AND PLAN: Status post small bowel obstruction. Dr. Bernal was following. She had lysis of adhesions and she had small bowel resection. She does seem to be getting a couple bites down. I am going to stop her Demerol and switch her to something else like tramadol for pain. Her electrolytes look good. Sodium 129, potassium 4.7, chloride 97, BUN 20, creatinine 0.7. Hematocrit 25, hemoglobin 8.4; that is stable. We will stop the Demerol. I am going to stop the cefoxitin. It seems like we are making progress. Continue physical therapy. She is getting MiraLAX 17 g daily as well. We will stop the Demerol. We will just use tramadol for pain. cc: Bradley Boyd MD
[2018-10-12] MEDS: ULTRAM PO PRN (16:32)
[2018-10-13] MEDS: ULTRAM PO PRN ×2 (02:30→12:03)
[2018-10-13] MEDS: ZOFRAN IV PRN ×3 (03:17→12:03)
--- NOTE | 2018-10-13 06:41 | GENERAL SURGERY PROGRESS NOTE ---
DATE: 04/14/2019 SUBJECTIVE: Patient seems to be doing okay. She had a little bit of nausea. OBJECTIVE: Vital Signs: Patient is currently afebrile. Her vital signs stable. General: No acute distress. Cardiovascular: Regular rate and rhythm. Lungs: Grossly clear. Abdomen: Soft, appropriately tender. Incision is healing well. FIONA drain in place with serosanguineous output. ASSESSMENT AND PLAN: An 83-year-old female, currently postoperative day #7 from exploratory laparotomy, small-bowel resection. Postop state. At this time, the patient seems to be doing okay. She is tolerating her diet. She has been passing some gas. I think, at this point, we need to be looking at disposition and rehab options. cc: MD Bradley Garner MD
[2018-10-13] MEDS: CLINIMIX E 4.25%-5% SOLUTION 1,000 ML IV SCH ×3 (06:43→18:43)
[2018-10-13] MEDS: HEPARIN SUBQ SCH ×3 (06:44→21:13)
--- NOTE | 2018-10-13 09:47 | PROVIDER PROGRESS NOTE ---
Progress Note SUBJECTIVE: Patient reports cramping in the lower abdomen, L>R up to 02/12, overnight. She report associated nausea without vomiting. She "thinks" she may have had flatus, but she is not definite. No bowel movements. No CP, SOB, fever. OBJECTIVE: Last Vital Signs Temp 97.9 F 10/13/18 07:29 Pulse 77 10/13/18 07:38 Resp 17 10/13/18 07:29 BP 114/75 10/13/18 07:29 Pulse Ox 98 10/13/18 07:38 Height 5 ft 6 in Weight 115 lb GEN: awake, alert, NAD, chronically ill appearing HEENT: anicteric, MMM NECK: no JVD, LAD CV: RRR, mrg PULM: CTAB, no wheezing or crackles ABD: mild incision with dressing c/d/i, RLQ FIONA drain with sanginous fluid, ND, BS present, mild TTP throughout, no rebound or guarding EXT: no cce NEURO: nonfocal LABS: 10/08/18 10/12/18 10/12/18 20:40 10:35 10:35 WBC Cancelled 6.41 Hgb 8.4 L Plt Count 197 Sodium 129 L Potassium 4.7 Chloride 97 L Carbon Dioxide 25 BUN 20 Creatinine 0.7 Glucose 117 H A/P: Ms. Kristen Greenwood is a 83 year old woman admitted with SBO with internal hernia with perforation and intraabdominal abscess s/p SB resection and lysis of adhesions on 10/06. She continues to have persistent nausea and lower abdominal pain. No BM, minimal flatus. She is receiving bowel regimen. She is s/p abx with cefoxitin. #SBO - will order repeat CT abdomen and pelvis given persistent symptoms - BMP and CBC ordered - continue post-operative mgmt as per surgery - analgesics and antiemetics prn - GI soft diet as tolerated - on clinimix and IVFs #Nausea: from above; mgmt as above #Intra-abdominal abscess: afebrile; leukocytosis resolved; s/p cefoxitin #Anemia: stable; continue PPI #Hyponatremia: hypovolemic hyponatremia likely from poor PO intake Will follow with you
[2018-10-13] MEDS: LR 1,000 ML IV SCH (12:02)
[2018-10-13] MEDS: PROTONIX IV SCH (12:03)
--- NOTE | 2018-10-13 12:37 | Diag Imaging Result Doc PS360 ---
EXAM: CT ABD/PELVIS W/PO AND IV CON INDICATION: history of SBO s/p partial SB resection TECHNIQUE: This exam was performed using automated exposure control, adjustment of mA or kV according to patient size, and/or use of iterative reconstruction technique. COMPARISON: 09/20/2018 FINDINGS: There are bilateral moderate to large sized pleural effusions and bibasilar atelectasis. There is a large amount of retained oral contrast in loops of bowel from a prior study that is causing significant beam hardening artifact and obscures some of the fine details. There is suggestion of mild hepatic steatosis. The gallbladder is unremarkable. The spleen, pancreas, and adrenal glands are unremarkable. There is a tiny simple appearing cyst at the upper pole of the left kidney. Kidneys are unremarkable as imaged, otherwise. The lower pole of the left kidney is obscured by beam hardening artifact. The pelvis is partially obscured by beam hardening artifact related to the retained barium as well as a left hip arthroplasty. The visualized portion of the urinary bladder is unremarkable. There has been a recent laparotomy. Midline abdominal skin chantel are noted. There is a drainage catheter with the tip in the pelvis. There are multiple distended loops of small bowel and colon that still contain barium from a previous study, likely from a small bowel follow-through dated 10/04/2018. This distention is probably related to ileus. However, recurrent obstruction cannot completely be excluded. IMPRESSION: 1.Retained barium in multiple loops of bowel causing excessive beam hardening artifact, which somewhat limits the study. 2.Persistent distended loops of small bowel and colon that is probably related to ileus from a recent surgery. However, recurrent obstruction cannot be excluded. 3.Bilateral moderate to large sized pleural effusions and bibasilar atelectasis. 4.Other incidental/nonacute findings detailed above. Electronically signed by Ki Antonio 10/13/2018 12:35 PM
--- NOTE | 2018-10-13 13:28 | PROGRESS NOTE ---
DATE: 10/13/2018 SUBJECTIVE: Ms. Greenwood says that she is just discouraged and waiting on them to do an x-ray. They are doing another small bowel study. PHYSICAL EXAMINATION: Today, temperature 97.9 degrees, pulse 77, respirations 17, blood pressure 114/75. Pupils are equal and round. No distended neck veins. Lungs are clear in all lung johnson. Cardiovascular Examination: Regular rhythm and rate without murmur or S3. Abdomen is soft. Skin is warm and dry. Urine output is 840 mL. LABORATORY DATA: Abdominal and pelvic CT done, retained barium in multiple loops of bowel causing excessive beam hardening artifact which somewhat limits this study, persistent distended loops of small bowel in the colon that are probably related to ileus from recent surgery. However, obstruction cannot be excluded. Bilateral moderate to large size pleural effusions, bibasilar atelectasis. ASSESSMENT AND PLAN: Small bowel obstruction, internal hernia with perforation and intra- abdominal abscess, status post small bowel resection, lysis of adhesions. Has persistent ileus with nausea and abdominal pain. Surgery and gastroenterology are following. She is on a soft gastrointestinal diet at this time. This is day 7 post exploratory laparotomy. She still has a Arthur-Moe drain. Continue present regimen. She is getting Clinimix 70 mL an hour. She is on low-dose heparin 5000 units subcutaneously every .8 hours and MiraLAX 17 g daily, Protonix 40 mg intravenous every 24 hours, lactate Ringer's at 60 mL an hour. We are giving her the Ultram as needed for pain. I have stopped the Demerol. cc: Bradley Boyd MD
[2018-10-13] MEDS: MIRALAX PO SCH (14:17)
[2018-10-13] MEDS: DULCOLAX PR SCH ×2 (14:19→21:13)
[2018-10-14] MEDS: LR 1,000 ML IV SCH ×4 (01:38→20:18)
[2018-10-14] MEDS: CLINIMIX E 4.25%-5% SOLUTION 1,000 ML IV SCH ×4 (04:05→22:20)
[2018-10-14] MEDS: ULTRAM PO PRN (04:11)
[2018-10-14] MEDS ORDERED: FLEET ENEMA PR PRN (05:47)
[2018-10-14] MEDS: HEPARIN SUBQ SCH ×3 (06:00→21:02)
--- NOTE | 2018-10-14 06:30 | GENERAL SURGERY PROGRESS NOTE ---
DATE: 10/14/2018 SUBJECTIVE: Patient seems to be doing okay. OBJECTIVE: Reviewed CT scan, it looks like the contrast burden is mostly in her colon. I think she has some degree of colonic dysmotility from chronic issues with constipation. I do not see any intra-abdominal abscess. She does have bowel sounds. She is passing gas. She does have air and stool in her distal colon. ASSESSMENT AND PLAN: At this point, I think we need to probably do some degree of irrigation with enemas and see if we can clean up this contrast medium, but otherwise continue current treatment. cc: MD Bradley Garner MD
[2018-10-14] MEDS: MIRALAX PO SCH (09:54)
[2018-10-14] MEDS: DULCOLAX PR SCH ×2 (09:54→21:02)
[2018-10-14] MEDS: PROTONIX IV SCH (12:03)
--- NOTE | 2018-10-14 12:54 | PROGRESS NOTE ---
DATE: 10/14/2018 SUBJECTIVE: Ms. Greenwood is feeling better sitting up in chair. She had a small bowel movement. No pain. She is able to get the MiraLAX down, and she is doing fairly well with physical therapy. No fever. OBJECTIVE: Vital Signs: Temperature 97.9 degrees, pulse 71, respirations 16, and blood pressure 103/67. HEENT: Pupils are equal and round. Lungs: Clear in all lung johnson. Cardiovascular: Regular rhythm and rate without murmur or S3. Abdomen: Soft. Skin: Warm and dry. LABORATORY: Urine output is 3800 mL. ASSESSMENT AND PLAN: Small bowel obstruction with small-bowel resection. Postop ileus seems to be making improvement. She had continued present regimen. We are making progress. She is on Clinimix. Continue physical therapy. I think she will probably end up being here this weekend. We would still like her bowels moving better and she is tolerating I believe a GI soft diet. I am going to try her on some Remeron 15 mg at night to see if that helps her appetite. cc: Bradley Boyd MD
[2018-10-14] MEDS: REMERON PO SCH (21:02)
[2018-10-15] MEDS: HEPARIN SUBQ SCH ×4 (05:57→20:06)
--- NOTE | 2018-10-15 06:19 | GENERAL SURGERY PROGRESS NOTE ---
DATE: 10/15/2018 SUBJECTIVE: Patient seems to be doing okay. OBJECTIVE: Vital Signs: Patient is currently afebrile. Her vital signs are stable. General: No acute distress. Cardiovascular: Regular rate and rhythm. Lungs: Grossly clear. Abdomen: Soft, appropriately tender. Bowel sounds auscultated. ASSESSMENT AND PLAN: An 83-year-old female status post operative day #9 from exploratory laparotomy and small bowel resection. 1. Postoperative state- at this time she has had a prolonged ileus but I think she is improving. We will continue supportive care. cc: MD Bradley Garner MD
[2018-10-15] MEDS: MIRALAX PO SCH ×2 (08:25→08:29)
[2018-10-15] MEDS: DULCOLAX PR SCH ×2 (08:25→20:05)
--- NOTE | 2018-10-15 10:20 | PROVIDER PROGRESS NOTE ---
Progress Note SUBJECTIVE: No acute overnight events. +nausea without vomiting. She complains of abdominal pain at FIONA drain site. She has not been taking in much PO since it causes nausea. Tolerating ice chips today. Complains of painful bed sore. She has been ambulatory. She has had small liquid stools. +flatus OBJECTIVE: Last Vital Signs Temp 98.2 F 10/15/18 07:23 Pulse 85 10/15/18 07:23 Resp 18 10/15/18 07:23 BP 119/58 10/15/18 07:23 Pulse Ox 95 10/15/18 07:23 Height 5 ft 6 in Weight 115 lb GEN: awake, alert, NAD, chronically ill appearing HEENT: anicteric, MMM NECK: no JVD, LAD CV: RRR, mrg PULM: CTAB, no wheezing or crackles ABD: mild incision with dressing c/d/i, RLQ FIONA drain with serous fluid, ND, BS present, minimally TTP throughout, no rebound or guarding EXT: no cce NEURO: nonfocal LABS: None A/P: Ms. Kristen Greenwood is a 83 year old woman admitted with SBO with internal hernia with perforation and intraabdominal abscess s/p SB resection and lysis of adhesions on 10/06. She continues to have persistent nausea and lower abdominal pain at FIONA site. She is now having active bowel sounds and passing small stools as well as flatus. #SBO - continue post-operative mgmt as per surgery - analgesics and antiemetics prn - GI soft diet as tolerated #Nausea: from above; mgmt as above #Intra-abdominal abscess: afebrile; s/p course of cefoxitin #Anemia: stable; continue PPI #Hyponatremia: hypovolemic hyponatremia likely from poor PO intake #Protein calorie malnutrition: on clinimix and IVFs Will follow with you
[2018-10-15] MEDS: PROTONIX IV SCH (11:45)
--- NOTE | 2018-10-15 14:50 | PROGRESS NOTE ---
DATE: 10/15/2018 SUBJECTIVE: She is better. She has had a bowel activity and bowel movement, feels better. Has been able to eat a little bit of a grilled cheese sandwich. OBJECTIVE: Vital Signs: Temperature 97.8 degrees, pulse 74, respirations 17, blood pressure 110/57. Eyes: Pupils are equal and round. Lungs: Clear in all lung johnson. Cardiovascular exam: Regular rhythm and rate without murmur or S3. Abdomen: Soft. Skin: Warm and dry. ASSESSMENT AND PLAN: 1. The patient seems to have improved. She has had some bowel activity. She had lysis of adhesions, small bowel obstruction on 10/06. So, we will continue present measures. 2. She has had hip surgery, open reduction, internal fixation, and she is tolerating physical therapy. We will look to go intubated to rehabilitation on Thursday. cc: Bradley Boyd MD
[2018-10-15] MEDS: LR 1,000 ML IV SCH (15:30)
[2018-10-15] MEDS: CLINIMIX E 4.25%-5% SOLUTION 1,000 ML IV SCH (15:31)
[2018-10-15] MEDS: REMERON PO SCH (20:06)
[2018-10-16] MEDS: LR 1,000 ML IV SCH ×3 (01:25→18:08)
[2018-10-16] MEDS: CLINIMIX E 4.25%-5% SOLUTION 1,000 ML IV SCH ×3 (02:59→16:47)
[2018-10-16] MEDS: HEPARIN SUBQ SCH ×3 (04:53→22:24)
--- NOTE | 2018-10-16 06:19 | GENERAL SURGERY PROGRESS NOTE ---
DATE: 10/16/2018 SUBJECTIVE: Patient seems to be doing okay. She passed some gas. She is eating more. OBJECTIVE: Vital Signs: Patient is currently afebrile. Her vital signs stable. General: No acute distress. Cardiovascular: Regular rate and rhythm. Lungs: Grossly clear. Abdomen: Soft, appropriately tender. Bowel sounds auscultated. ASSESSMENT AND PLAN: An 83-year-old female status post operative day #10 from exploratory laparotomy and small-bowel resection. Postop state. At this time, I think patient is doing well all things considered. Hopefully, she can be transferred to a rehab facility here on Thursday. cc: MD Bradley Garner MD
[2018-10-16] MEDS: MIRALAX PO SCH (08:20)
[2018-10-16] MEDS: DULCOLAX PR SCH ×2 (08:20→22:24)
--- NOTE | 2018-10-16 12:51 | PROGRESS NOTE ---
DATE: 10/16/2018 SUBJECTIVE: Ms. Greenwood is doing better. She is trying to eat some food. She has had bowel movements yesterday and today. No nausea. Abdomen looks good. Arthur-Moe drain still in. The incision looks good. OBJECTIVE: Vital Signs: Temperature 98.6 degrees, pulse 81, respirations 17, blood pressure 133/51. Eyes: Pupils are equal and round. Lungs: Clear in all lung johnson. Cardiovascular exam: Regular rhythm and rate without murmur or S3. : Urine output is 4000 mL. ASSESSMENT AND PLAN: The patient is to continue to improve, and so eating well. Continue to work on her strength and physical therapy. Hopefully, she can go back to rehabilitation on Thursday. Looking at her orders, I do not see any change. Reviewing her lab from the looks good. cc: Bradley Boyd MD
[2018-10-16] MEDS: PROTONIX IV SCH (13:20)
[2018-10-16] MEDS: REMERON PO SCH (22:24)
[2018-10-17] MEDS: LR 1,000 ML IV SCH ×2 (01:53→17:57)
[2018-10-17] MEDS: HEPARIN SUBQ SCH ×3 (04:54→21:50)
--- NOTE | 2018-10-17 07:52 | PROGRESS NOTE ---
DATE: 10/17/2018 SUBJECTIVE: Ms. Greenwood was resting comfortably, sleeping. Did not arouse during examination. EXAMINATION: Temperature 99.0, pulse 90, respirations 12, blood pressure 132/55. Pupils are equal and round. Lungs are clear in all lung johnson. Cardiovascular Examination: Regular rhythm and rate without murmur or S3. Her urine output was 2500 mL. ASSESSMENT AND PLAN: 1. Continues to improve. Her bowel motility continues to improve. Status post day 11 for exploratory laparotomy and small-bowel resection. 2. She is status post open reduction and internal fixation of her hip. Seems to be doing well with physical therapy. I think the plan is to try to go back to rehab tomorrow but things have improved now. Her hematocrit is 25, hemoglobin 8.4, which is stable. Electrolytes look good. Renal function looks good. cc: Bradley Boyd MD
[2018-10-17] MEDS: CLINIMIX E 4.25%-5% SOLUTION 1,000 ML IV SCH ×2 (08:31→21:50)
[2018-10-17] MEDS: ULTRAM PO PRN ×2 (08:32→21:58)
[2018-10-17] MEDS: MIRALAX PO SCH (08:33)
[2018-10-17] MEDS: DULCOLAX PR SCH ×2 (08:33→21:50)
[2018-10-17] MEDS: ZOFRAN IV PRN (10:14)
--- NOTE | 2018-10-17 10:47 | GENERAL SURGERY PROGRESS NOTE ---
DATE: 10/17/2018 SUBJECTIVE: Ms. Greenwood complains of discomfort in her abdomen still. She is concerned about inflammation on the inside because of the discomfort. She reports passing some flatus and having some bowel movements. Her temp is 99 degrees, heart rate 90, blood pressure 132/55. She has reportedly 1660 in, 620 out. She has 20 mL out her drain. She is not eating very much. No recent lab work. She may needs some appetite stimulant to increase her p.o. intake. I will leave that up to her primary doctor. Her drain will probably come out soon per Dr. Tapia. cc: MD Bradley Barfield MD
[2018-10-17] MEDS: PROTONIX IV SCH (11:44)
[2018-10-17] MEDS: REMERON PO SCH (21:50)
[2018-10-18] MEDS: CLINIMIX E 4.25%-5% SOLUTION 1,000 ML IV SCH ×2 (00:07→15:26)
[2018-10-18] MEDS: HEPARIN SUBQ SCH ×3 (04:29→21:25)
--- NOTE | 2018-10-18 08:11 | GENERAL SURGERY PROGRESS NOTE ---
DATE: 10/18/2018 SUBJECTIVE: Patient seems to be doing okay. She is having bowel movements. She is passing gas but does not have much appetite. OBJECTIVE: Vital Signs: Patient is currently afebrile. Her vital signs stable. General: No acute distress. Cardiovascular: Regular rate and rhythm. Lungs: Grossly clear. Abdomen: Soft, appropriately tender. Incision with some mild erythema at the chantel. IFONA with minimal serosanguineous output and was removed, which patient tolerated well. Bowel sounds auscultated. ASSESSMENT AND PLAN: An 83-year-old female status post operative day #12 from exploratory laparotomy with small bowel resection. 1. Postoperative state at this time, she seems to be doing okay. Her FIONA drain is removed. I think she can go to a rehab facility here in the near future, probably have her chantel removed in 2 days. Otherwise, continue current treatment. cc: MD Bradley Garner MD
[2018-10-18] MEDS: DULCOLAX PR SCH ×2 (08:55→21:24)
[2018-10-18] MEDS: MIRALAX PO SCH (08:56)
[2018-10-18] MEDS: ULTRAM PO PRN (09:15)
[2018-10-18] MEDS: ZOFRAN IV PRN (09:15)
[2018-10-18] MEDS: LR 1,000 ML IV SCH (13:00)
[2018-10-18] MEDS: PROTONIX IV SCH (13:23)
--- NOTE | 2018-10-18 17:11 | PROGRESS NOTE ---
DATE: 10/18/2018 SUBJECTIVE: Ms Greenwood is better. She is sitting up in a chair. She has had bowel movements. We seem to be making progress. I think she is ready to go to rehabilitation. He did pull her Arthur-Moe drain, and so we will try and go to rehabilitation tomorrow, I think is the plan OBJECTIVE: Temperature 97.8 degrees, pulse 92, respirations 18, blood pressure 112/42. Pupils are equal and round. Lungs are clear in all lung johnson. Cardiovascular: Regular rhythm and rate without murmur or S3. Abdomen is soft. Skin is warm and dry. Urine output 3500 mL. She is passing flatus and having some bowel movements. ASSESSMENT AND PLAN: She had a hip replaced about 4 weeks ago so to go back to rehabilitation tomorrow. I will stop her Clinimix, and she is eating well. She is on Ultram for pain. Still taking MiraLAX once a day. He has got Remeron 15 mg at bedtime to try and help with appetite and she takes a Dulcolax suppository 10 mg per rectum b.i.d. cc: Bradley Boyd MD MTDD
[2018-10-18] MEDS: REMERON PO SCH (21:24)
[2018-10-19] MEDS: HEPARIN SUBQ SCH (04:43)
[2018-10-19] MEDS: LR 1,000 ML IV SCH ×2 (04:43→07:53)
--- NOTE | 2018-10-19 06:22 | GENERAL SURGERY PROGRESS NOTE ---
DATE: 10/19/2018 SUBJECTIVE: The patient seems to be doing okay. She is having bowel movements. She is feeling better. OBJECTIVE: Vital Signs: The patient is currently afebrile. Her vital signs are stable. General: No acute distress. Cardiovascular: Regular rate and rhythm. Lungs: Grossly clear. Abdomen: Soft. Appropriately tender. ASSESSMENT AND PLAN: An 83-year-old female currently postoperative day #13 from exploratory laparotomy with small-bowel obstruction. Postoperative state: At this time, she is doing okay. Hopefully, she can be transferred to a rehab facility today. cc: MD Bradley Garner MD
[2018-10-19] MEDS: ZOFRAN IV PRN (07:42)
--- NOTE | 2018-10-19 08:48 | PROVIDER PROGRESS NOTE ---
Progress Note SUBJECTIVE: No acute overnight events. Afebrile. Patient reports nausea and poor appetite. She is taking some small bites of food, but doesn't find it appetizing. No vomiting. +abdominal pain related to incision. No BM for last couple of days. Her miralax was held secondary to diarrhea previously. No flatus currently. No CP, SOB. OBJECTIVE: Last Vital Signs Temp 98.1 F 10/19/18 07:24 Pulse 86 10/19/18 07:24 Resp 20 10/19/18 07:24 BP 104/41 10/19/18 07:24 Pulse Ox 98 10/19/18 07:24 Height 5 ft 6 in Weight 115 lb GEN: awake, alert, NAD, chronically ill appearing, malnourished HEENT: anicteric, MMM NECK: no JVD, LAD CV: RRR, mrg PULM: CTAB, no wheezing or crackles ABD: mild incision with dressing c/d/i, dressing at site of previous FIONA drain saturated, BS present, minimally TTP throughout, no rebound or guarding EXT: no cce NEURO: nonfocal LABS: None A/P: Ms. Kristen Greenwood is a 83 year old woman admitted with SBO with internal hernia with perforation and intraabdominal abscess s/p SB resection and lysis of adhesions on 10/06. She continues to have persistent nausea and poor PO intake. We discussed the importance of nutritional support for recovery. I think she may benefit from scheduled antiemetics instead of PRN. She was encouraged to take PO as much as possible. #SBO - continue post-operative mgmt as per surgery - analgesics as needed, minimize narcotics, constipating medications - scheduled zofran with meals - GI soft diet as tolerated #Nausea: from above; mgmt as above #Constipation: recommend resuming miralax #Intra-abdominal abscess: afebrile; s/p course of cefoxitin #Anemia: stable; continue PPI #Hyponatremia: no labs today #Protein calorie malnutrition: ensure with meals Will follow with you. Please call with questions or concerns.
--- NOTE | 2018-10-19 09:04 | DISCHARGE SUMMARY ---
ADMISSION DATE: 09/21/2018 DISCHARGE DATE: 10/19/2018 HISTORY OF PRESENT ILLNESS: This is an 83-year-old who has a history of hypothyroidism, who presented to the emergency department with abdominal pain, nausea, and vomiting which lasted a little over a day. Was in rehab after having a hip fracture and open reduction and internal fixation. Really no other significant history other than hypothyroidism, history of right breast cancer, history of left hip surgery recently, a week ago, abdominal surgeries, hysterectomy, right breast lumpectomy. ALLERGIES: Compazine and codeine. HOSPITAL COURSE: Found to have small bowel obstruction. It was hard to tell if it was predominantly ileus or mechanical obstruction. NG tube was placed. It seemed to get a little better but never completely improved and had to put the NG tube in, prolonged. Surgery was following. DR. Tapia was following along as well as Dr. Delfino Bernal from gastroenterology. Eventually determined to do an exploratory laparotomy where they found a small bowel abscess and stricture. Did some lysis of adhesions and removed part of the small bowel. She showed a fairly steady improvement after that. Surgery was done on 10/06/2018, exploratory laparotomy with small bowel resection, extensive lysis of adhesions. Following, able to stop her NG tube. Followup abdominopelvic CT on the showed some retained barium, multiple loops of bowel causing excessive beam hardening artifact which limited study, persistent distended loops of small bowel in colon, probably related to ileus from recent surgery. However, clinically improved. Kept her on MiraLAX. She underwent physical therapy and was able to ambulate fairly well. Tolerating a soft diet. This is postoperative day 14 for exploratory laparotomy and felt like she could go to rehab today. DISCHARGE MEDICATIONS: She will be on Dulcolax 10 mg per rectum b.i.d., Remeron 15 mg at bedtime, Protonix 40 mg p.o. daily, MiraLAX 17 g p.o. daily, Fleet's enema p.r.n. constipation. I have her on Ultram 50 mg q.6 hours p.r.n. pain. I think we are trying to get her to [facility]. cc: Bradley Boyd MD
--- NOTE | 2018-10-19 09:45 | Diag Imaging Result Doc PS360 ---
EXAM: CHEST-2 VIEWS HISTORY: Rehab placement TECHNIQUE: Chest two views COMPARISON: 09/27/2018 FINDINGS: The lungs are hyperexpanded. There are small bilateral pleural effusions with basilar atelectasis. Findings could represent underlying infiltrates in the appropriate clinical setting. No cardiomegaly. No pulmonary edema. IMPRESSION: Small bilateral pleural effusions with basilar atelectasis Electronically signed by Ferny Ortiz 10/19/2018 9:43 AM
[2018-10-19] MEDS: DULCOLAX PR SCH (10:17)
[2018-10-19] MEDS: MIRALAX PO SCH (10:18)
[2018-10-19] MEDS: PROTONIX IV SCH (10:19)
[2018-10-19] MEDS: SODIUM CHLORIDE 0.9% INJ SCH (10:19)
[2018-10-19] MEDS ORDERED: ZOFRAN IV SCH (11:00)
[2018-10-19 11:18] VITALS: BP 116/48
== END 2018-10-19 14:55 | DRG 329 ==
LOC: SUPCPDRO → ED 18:36 → SUATTDRO 09-21 01:46 → 3N 09-21 01:46
PROVIDERS: ADMIT Emergency Medicine; ATTEND Emergency Medicine
CPT/HCPCS: 71020; 71046; 74000; 74018; 74019; 74020; 74022; 74177; 74250; 80048; 80053; 81001; 82150; 82607; 82746; 82948; 83690; 83735; 84439; 84443; 85025; 87077; 87088; 87186; 88307; 94761; 94799; 96361; 96374; 97110; 97162; 97165; 97530; 99285; A9270; C9113; C9290; J0131; J0330; J0694; J1100; J1170; J1644; J2175; J2405; J2765; J7030; J7120; Q9966; Q9967; S0020; S0164; XXXXX